=== PATIENT | female | born 1950 | race Caucasian/White ===

== ENCOUNTER 2019-10-19 15:04 | Emergency (ER) | payer MEDICARE, BC, SELFPAY ==
[2019-10-19 15:25] VITALS: BP 160/100; PULSE 102; RESP 20; TEMP 36.9; O2SAT 99
--- NOTE | 2019-10-19 15:41 | ED.FEMALEGU ---
HPI - Female Genitourinary General Chief complaint: Urogenital-Female Stated complaint: pos uti Time Seen by Provider: 10/19/19 15:24 Source: patient and RN notes reviewed Mode of arrival: ambulatory Limitations: no limitations History of Present Illness HPI Narrative: Patient presents today complaining of a 3-hour of gross hematuria, frequency, urgency, and lower abdominal pressure. Denies fever, chills or sweats, back pain, dysuria. Patient currently takes Xarelto for A. fib. History of a full hysterectomy many years ago related to uterine cancer. MD elicited complaint: other (Hematuria) Related Data Home Medications Medication Instructions Recorded Confirmed furosemide 40 mg DAILY 10/19/19 10/19/19 losartan-hydrochlorothiazide 1 tablet DAILY 10/19/19 10/19/19 metoprolol tartrate 100 mg BID 10/19/19 10/19/19 potassium chloride [Klor-Con M20] 20 meq PO DAILY 10/19/19 10/19/19 rivaroxaban [Xarelto] 20 mg DAILY 10/19/19 10/19/19 simvastatin 40 mg DAILY 10/19/19 10/19/19 Allergies Allergy/AdvReac Type Severity Reaction Status Date / Time AILYN Inhibitors Allergy Unknown COUGH Verified 08/16/18 14:43 Review of Systems Review of Systems: Narrative: CONSTITUTIONAL: Denies body aches, fever, chills, or sweats. EYES: Denies visual changes, redness, or discharge. ENT: Denies rhinorrhea, congestion, sore throat, or otalgia. CARDIOVASCULAR: Denies chest pain, palpitations, or edema. RESPIRATORY: Denies cough or dyspnea. GASTROINTESTINAL: Denies abdominal pain, nausea, vomiting, or diarrhea. GENITOURINARY: Denies dysuria. + Hematuria, urgency, frequency, lower abdominal pressure SKIN: Denies rash, itching, or wounds. MUSCULOSKELETAL: Denies back pain, joint pain, or myalgia. NEUROLOGIC: Denies headache, numbness, tingling, or weakness. PSYCH: Denies depression or anxiety. [facility] Past Medical History Medical History (Updated 10/19/19 @ 15:52 by Loan Srinivasan, DENI, BC) A-fib History of uterine cancer Hyperlipidemia Hypertension Surgical History Surgical History (Updated 10/19/19 @ 15:52 by Loan Srinivasan, GARAGE DOOR INSTALLER, BC) H/O: hysterectomy Social History Social History Gender identity (if verbalized by the patient): Female Comments At time of signature, I have reviewed and agree with nursing past medical, surgical, social and family history unless otherwise noted. Please see nursing chart for further information. There is no relevant family history pertinent to the presenting complaint Exam Narrative: Exam Narrative: GENERAL: Well-appearing, well-nourished, and in no acute distress. HEAD: Normocephalic, atraumatic. EYES: EOMI. No redness or drainage. Conjunctivae normal. ENT: Mucous membranes pink and moist. NECK: Normal AROM. CHEST: No respiratory distress. Clear to auscultation. HEART: Regular rate and rhythm. No murmur appreciated. Normal peripheral pulses. ABDOMEN: Soft, nontender, nondistended, normal active bowel sounds. -CVAT. Urine sample is dark red in color. MUSCULOSKELETAL: No bony tenderness. EXTREMITIES: Normal range of motion. No edema. SKIN: Warm, dry, no rash. Capillary refill normal. Normal skin turgor. NEURO: No focal deficits. Alert and oriented x3. Gait steady. PSYCH: Normal affect. No signs of depression or anxiety. Course Vital Signs Vital signs: Vital Signs Temperature 98.4 F 10/19/19 15:25 Pulse Rate 102 H 10/19/19 15:25 Respiratory Rate 10/19/19 15:25 Blood Pressure 160/100 H 10/19/19 15:25 Pulse Oximetry 99 10/19/19 15:25 Temperature 98.4 F 10/19/19 15:25 Pulse Rate 102 H 10/19/19 15:25 Respiratory Rate 10/19/19 15:25 Blood Pressure 160/100 H 10/19/19 15:25 Pulse Oximetry 99 10/19/19 15:25 Reviewed. Pt has been instructed to follow up with her PCP regarding her elevated blood pressure today. MDM - Female Genitourinary Differential Diagnosis Differential diagnosis: Likely urinary tract infection, vaginitis and cystitis L
== END 2019-10-19 15:47 | disposition home or self-care (01) ==
PROVIDERS: Emergency Provider Nurse Practitioner; PCP Family Medicine
DX: N30.01 Acute cystitis with hematuria (principal); I48.91 Unspecified atrial fibrillation; Z79.01 Long term (current) use of anticoagulants; E78.5 Hyperlipidemia, unspecified; I10 Essential (primary) hypertension; Z85.42 Personal history of malignant neoplasm of other parts of uterus
CPT/HCPCS: 81003; 87077; 87086; 87088; 87186; 99213; G0463

== ENCOUNTER 2019-12-01 11:33 | Emergency (ER) | payer MEDICARE, BC, SELFPAY ==
[2019-12-01 11:47] VITALS: BP 185/115; PULSE 108; RESP 16; TEMP 37.1; O2SAT 98
--- NOTE | 2019-12-01 12:15 | ED.GENADULT ---
HPI - General Adult General Chief complaint: Upper Respiratory Infection Stated complaint: possible sinus infection Time Seen by Provider: 12/01/19 12:15 Source: patient and RN notes reviewed Mode of arrival: ambulatory Limitations: no limitations History of Present Illness HPI narrative: 68-year-old female presents with complaints of upper respiratory infection, facial congestion, facial pain, cough, and intermittent sore throat and headaches (not the worst of her life) for the past 14 days. Symptoms has increased over the past 72 hours with productive cough and yellow rhinorrhea. Vickis nasal spray without relief. No facial swelling. Dry cough/intermittent productive cough (clear phlegm). Nasal congestion and rhinorrhea. No chest pain or shortness of breath. No exacerbating factors. Sore throat is bilateral without voice change. Denies fever or chills. Denies nausea, vomiting, and abdominal pain. Tolerating po intake well. Remains active. The patient reports she have not been diagnosed with COVID-19. The patient reports she is not waiting for the results of a COVID-19 lab test. The patient reports she do not have fever, chills, weakness, or fatigue. The patient reports she does have a worsening cough. The patient reports she do not have any loss of taste or diarrhea. Denies recent traveling. Denies concerns for COVID-19 or exposures been home with limited outdoor exposure except for essential household needs and return home. At this time, patient is not suspected of having COVID-19. Some parts of this dictation were generated by voice recognition software and may contain typographical and/or grammatical inaccuracies. Related Data Home Medications Medication Instructions Recorded Confirmed coenzyme Q10 [Co Q-10] 10 mg PO DAILY 12/01/19 12/01/19 cranberry 400 mg PO DAILY 12/01/19 12/01/19 losartan-hydrochlorothiazide 1 tablet PO DAILY 12/01/19 12/01/19 metformin [Glucophage XR] 500 mg PO BID 12/01/19 12/01/19 metoprolol tartrate [Lopressor] 50 mg PO BID 12/01/19 12/01/19 niacin 50 mg PO DAILY 12/01/19 12/01/19 omega-3 fatty acids [Fish Oil] 1,000 mg PO DAILY 12/01/19 12/01/19 rivaroxaban [Xarelto] 20 mg PO DAILY 12/01/19 12/01/19 simvastatin [Zocor] 40 mg PO HS 12/01/19 12/01/19 Allergies Allergy/AdvReac Type Severity Reaction Status Date / Time AILYN Inhibitors Allergy Unknown COUGH Verified 12/01/19 12:04 Review of Systems Review of Systems: Narrative: CONSTITUTIONAL: Denies fever, chills, sweats. EYES: Denies visual changes, redness, discharge. ENT: Complains of rhinorrhea, congestion, sore throat. Denies otalgia. CARDIOVASCULAR: Denies chest pain, palpitations, edema. RESPIRATORY: Denies dyspnea, wheezing. Complains of dry cough/intermittent productive. GASTROINTESTINAL: Denies abdominal pain, nausea, vomiting, diarrhea. GENITOURINARY: Denies dysuria, hematuria, abnormal discharge. SKIN: Denies rash or itching. MUSCULOSKELETAL: Denies acute back pain, joint pain, or myalgia. NEUROLOGIC: Denies numbness or focal weakness. Complains of intermittent ZHAO. PSYCHIATRIC: Denies anxiety or depression. All systems reviewed & are unremarkable except as noted in HPI and below. [facility] Past Medical History Medical History (Updated 12/01/19 @ 12:46 by DENI Duron) A-fib Anxiety Diabetes History of uterine cancer Hyperlipidemia Hypertension Surgical History Surgical History (Updated 12/01/19 @ 12:46 by DENI Duron) H/O: hysterectomy History of cardiac catheterization History of coronary artery stent placement History of eye surgery Family History Family History (Updated 12/01/19 @ 12:44 by DENI Duron) Father , At age 71 circulation problems Peripheral vascular disease Mother , At age 67 of [place] Acute myocardial infarction Social History Social History (Updated 12/01/19 @ 12:43 by DENI Duron) Smoking status: Never smoker Tob
[2019-12-01 12:30] VITALS: BP 168/92
--- NOTE | 2019-12-01 12:31 | PC.NURSE ---
1230- Pt told other RN (Alfredo Cody) she had not taken her blood pressure medications yet today.
== END 2019-12-01 12:27 | disposition home or self-care (01) ==
PROVIDERS: Emergency Provider Nurse Practitioner Family; PCP Family Medicine
DX: J01.00 Acute maxillary sinusitis, unspecified (principal); Z95.5 Presence of coronary angioplasty implant and graft; I48.91 Unspecified atrial fibrillation; E11.9 Type 2 diabetes mellitus without complications; E78.5 Hyperlipidemia, unspecified; I10 Essential (primary) hypertension; Z85.42 Personal history of malignant neoplasm of other parts of uterus; Z79.01 Long term (current) use of anticoagulants
CPT/HCPCS: 87081; 87804; 87880; 99213; G0463

== ENCOUNTER 2020-08-09 19:52 | Emergency (ER) | payer MEDICARE, BC, SELFPAY ==
[2020-08-09 20:04] VITALS: BP 138/74; PULSE 90; RESP 16; TEMP 36.9; O2SAT 99
--- NOTE | 2020-08-09 20:14 | ED.FEMALEGU ---
HPI - Female Genitourinary General Chief complaint: Urogenital-Female Stated complaint: uti Time Seen by Provider: 08/09/20 20:10 Source: patient and RN notes reviewed Mode of arrival: ambulatory Limitations: no limitations History of Present Illness HPI Narrative: Patient presents today complaining of hematuria, frequency, urgency, dysuria that started today. The hematuria started more this evening. History of UTI that she was seen at [facility] in October 2019 and treated with Keflex. Culture results showed E. coli and she had no resistance to antibiotics. States the Keflex did help her. MD elicited complaint: dysuria and UTI Related Data Home Medications Medication Instructions Recorded Confirmed Adults Multivitamin 08/09/20 ascorbate calcium (vitamin C) 08/09/20 co [id number] oil-omega 3-E 08/09/20 losartan-hydrochlorothiazide tablet 08/09/20 metformin mg PO 08/09/20 metoprolol tartrate 08/09/20 potassium chloride [Klor-Con M20] meq PO 08/09/20 rivaroxaban [Xarelto] mg 08/09/20 simvastatin mg 08/09/20 Allergies Allergy/AdvReac Type Severity Reaction Status Date / Time No Known Allergies Allergy Verified 08/09/20 19:56 Review of Systems Review of Systems: Narrative: CONSTITUTIONAL: Denies body aches, fever, chills, or sweats. EYES: Denies visual changes, redness, or discharge. ENT: Denies rhinorrhea, congestion, sore throat, or otalgia. CARDIOVASCULAR: Denies chest pain, palpitations, or edema. RESPIRATORY: Denies cough or dyspnea. GASTROINTESTINAL: Denies abdominal pain, nausea, vomiting, or diarrhea. GENITOURINARY: + Dysuria, hematuria, frequency, urgency SKIN: Denies rash, itching, or wounds. MUSCULOSKELETAL: Denies back pain, joint pain, or myalgia. NEUROLOGIC: Denies headache, numbness, tingling, or weakness. PSYCH: Denies depression or anxiety. [facility] Past Medical History Medical History (Updated 08/09/20 @ 20:18 by Loan Srinivasan, OPHTHALMIC LENS INSPECTOR, ) A-fib Diabetes Hypertension Comments At time of signature, I have reviewed and agree with nursing past medical, surgical, social and family history unless otherwise noted. Please see nursing chart for further information. There is no relevant family history pertinent to the presenting complaint Exam Narrative: Exam Narrative: GENERAL: Well-appearing, well-nourished, and in no acute distress. HEAD: Normocephalic, atraumatic. EYES: EOMI. No redness or drainage. Conjunctivae normal. ENT: Mucous membranes pink and moist. NECK: Normal AROM. CHEST: No respiratory distress. Clear to auscultation. HEART: Regular rate and rhythm. No murmur appreciated. Normal peripheral pulses. ABDOMEN: Soft, nontender, nondistended, normal active bowel sounds.-CVAT MUSCULOSKELETAL: No bony tenderness. EXTREMITIES: Normal range of motion. No edema. SKIN: Warm, dry, no rash. Capillary refill normal. Normal skin turgor. NEURO: No focal deficits. Alert and oriented x3. Gait steady. PSYCH: Normal affect. No signs of depression or anxiety. Course Vital Signs Vital signs: Vital Signs Temperature 98.4 F 08/09/20 20:04 Pulse Rate 90 08/09/20 20:04 Respiratory Rate 16 08/09/20 20:04 Blood Pressure 138/74 08/09/20 20:04 Pulse Oximetry 99 08/09/20 20:04 Temperature 98.4 F 08/09/20 20:04 Pulse Rate 90 08/09/20 20:04 Respiratory Rate 16 08/09/20 20:04 Blood Pressure 138/74 08/09/20 20:04 Pulse Oximetry 99 08/09/20 20:04 Reviewed. Pt has been instructed to follow up with her PCP regarding her elevated blood pressure today. MDM - Female Genitourinary Differential Diagnosis Differential diagnosis: Likely urinary tract infection and other (Pyelonephritis, interstitial cystitis, vulvovaginitis) Medical Records Attestation: I reviewed the patient's medical records. Lab Data Attestation: I reviewed the patient's lab results. Labs: Urine Glucose Trace Re
== END 2020-08-09 20:18 | disposition home or self-care (01) ==
PROVIDERS: Emergency Provider Nurse Practitioner; PCP Family Medicine
DX: N39.0 Urinary tract infection, site not specified (principal); I48.91 Unspecified atrial fibrillation; E11.9 Type 2 diabetes mellitus without complications; I10 Essential (primary) hypertension
CPT/HCPCS: 81003; 87077; 87086; 87186; 99213; G0463

== ENCOUNTER 2022-02-22 10:45 | Emergency (ER) | payer MEDICARE, BC, SELFPAY ==
[2022-02-22 11:01] VITALS: BP 170/103; PULSE 87; RESP 18; TEMP 36.8; O2SAT 98
[2022-02-22 11:05] VITALS: BP 170/103; PULSE 87; RESP 18; TEMP 36.8; O2SAT 98
--- NOTE | 2022-02-22 11:14 | ED.GENADULT ---
HPI - General Adult General Chief complaint: Upper Respiratory Infection Stated complaint: Weakness/Bodyaching/Fatique Time Seen by Provider: 02/22/22 11:14 Source: patient, RN notes reviewed and old records reviewed Mode of arrival: ambulatory Limitations: no limitations History of Present Illness HPI narrative: 71-year-old female presents to the [facility] with generalized weakness, body aches, fatigue since Saturday, 4 days Patient states she has a history of high blood pressure, heart failure, irregular heart rate and rhythm. Was supposed to have a tooth removed yesterday would stop taking her blood thinner 3-4 days ago. States that she was not feeling well so she did not go have her tooth removed, started her blood thinner back up today. Patient complaints of generalized weakness, and just foggy. Onset (ago): day(s) (4) Treatments prior to arrival: none Related Data Home Medications Medication Instructions Recorded Confirmed coenzyme Q10 10 mg capsule (Co 10 mg PO DAILY 12/01/19 12/01/19 Q-10) cranberry 400 mg capsule 400 mg PO DAILY 12/01/19 12/01/19 losartan 100 1 tablet PO DAILY 12/01/19 12/01/19 mg-hydrochlorothiazide 12.5 mg tablet metoprolol tartrate 50 mg tablet 50 mg PO BID 12/01/19 12/01/19 (Lopressor) niacin 50 mg tablet 50 mg PO DAILY 12/01/19 12/01/19 rivaroxaban 20 mg tablet (Xarelto) 20 mg PO DAILY 12/01/19 12/01/19 simvastatin 40 mg tablet (Zocor) 40 mg PO HS 12/01/19 12/01/19 Adults Multivitamin 08/09/20 co O01-qnfr oil-omega 3-E 08/09/20 metformin 500 mg tablet,extended mg PO 08/09/20 release 24 hr potassium chloride 20 mEq meq PO 08/09/20 tablet,extended release(part/cryst) (Klor-Con M) furosemide 40 mg tablet mg 02/22/22 02/22/22 Allergies Allergy/AdvReac Type Severity Reaction Status Date / Time AILYN Inhibitors Allergy Unknown COUGH Verified 02/22/22 11:01 Review of Systems Review of Systems: All systems reviewed & are unremarkable except as noted in HPI and below Constitutional: Constitutional: Reports as per HPI, Reports fatigue and Reports weakness Eyes: Eyes: Reports no additional eye complaints ENT: Reports system reviewed and no additional complaints, except as documented Cardiovascular: Cardiovascular: Reports as per HPI, Denies chest pain and Denies dyspnea Respiratory: Respiratory: Reports no additional respiratory complaints, Denies chest congestion, Denies cough and Denies dyspnea Gastrointestinal: Gastrointestinal: Reports no additional gastrointestinal complaints, Denies abdominal pain, Denies nausea and Denies vomiting Musculoskeletal: Musculoskeletal: Reports no additional musculoskeletal complaints Integumentary/Breasts: Skin/Breast: Reports system reviewed and no additional complaints, except as docu Neurologic: Reports system reviewed and no additional complaints, except as documented Psychiatric: Psychiatric: Reports no additional psychiatric complaints Allergic/Immunologic: Allergic/Immunologic: Reports no additional allergic/immunologic complaints [facility] Past Medical History Medical History A-fib A-fib Anxiety Diabetes Diabetes History of uterine cancer Hyperlipidemia Hypertension Hypertension Surgical History Surgical History H/O: hysterectomy History of cardiac catheterization History of coronary artery stent placement History of eye surgery Family History Family History Father , At age 71 circulation problems Peripheral vascular disease Mother , At age 67 of [place] Acute myocardial infarction Social History Social History Smoking status: Never smoker Tobacco type: cigarettes Second hand tobacco smoke exposure: No Alcohol intake: former Substance use: never Additional occupa
--- NOTE | 2022-02-22 11:26 | ECG_ITS ---
Measurements Intervals [place] Rate: 82 P: PA: 0 QRS: -16 QRSD: 101 T: -30 QT: 390 QTc: 458 Interpretive Statements ATRIAL FIBRILLATION INCOMPLETE RIGHT BUNDLE BRANCH BLOCK NONSPECIFIC T-WAVE ABNORMALITY- INF/LAT LEADS ABNORMAL ECG NO PREVIOUS ECG AVAILABLE FOR COMPARISON Electronically Signed On 02-23-2022 8:30:43 [employer]INT FA[employer]ORY WORK[employer] by Otto Piña D.O.
== END 2022-02-22 11:45 | disposition left against medical advice (07) ==
PROVIDERS: Emergency Provider Nurse Practitioner; PCP Family Medicine
DX: I48.91 Unspecified atrial fibrillation (principal); I10 Essential (primary) hypertension; E11.9 Type 2 diabetes mellitus without complications; E78.5 Hyperlipidemia, unspecified
CPT/HCPCS: 87804; 93005; 99213; G0463

== ENCOUNTER 2023-05-21 11:08 | Emergency (ER) | payer MEDICARE, SELFPAY ==
--- NOTE | 2023-05-21 11:19 | ED.URI ---
HPI - URI/Sore Throat General Chief Complaint: Upper Respiratory Infection Stated Complaint: Sinus Time Seen by Provider: 05/21/23 11:30 Source: patient Mode of arrival: ambulatory Limitations: no limitations History of Present Illness HPI Narrative: Edna is a 72-year-old female patient presenting to the clinic today with complaints of nasal congestion, eyes matted shut this morning, body aches, and overall not feeling well x1 day. Denies any known fever. MD elicited complaint: nasal congestion Related Data Home Medications Medication Instructions Recorded Confirmed coenzyme Q10 10 mg capsule (Co 10 mg PO DAILY 12/01/19 05/21/23 Q-10) cranberry 400 mg capsule 400 mg PO DAILY 12/01/19 05/21/23 losartan 100 1 tablet PO DAILY 12/01/19 05/21/23 mg-hydrochlorothiazide 12.5 mg tablet metoprolol tartrate 50 mg tablet 50 mg PO BID 12/01/19 05/21/23 (Lopressor) niacin 50 mg tablet 50 mg PO DAILY 12/01/19 05/21/23 rivaroxaban 20 mg tablet (Xarelto) 20 mg PO DAILY 12/01/19 05/21/23 simvastatin 40 mg tablet (Zocor) 40 mg PO HS 12/01/19 05/21/23 Adults Multivitamin 1 tab-cap PO DAILY 08/09/20 05/21/23 co [id number]-qcek oil-omega 3-E 1 tab-cap PO DAILY 08/09/20 05/21/23 metformin 500 mg tablet,extended 500 mg PO BID 08/09/20 05/21/23 release 24 hr potassium chloride 20 mEq 20 meq PO DAILY 08/09/20 05/21/23 tablet,extended release(part/cryst) (Klor-Con M) furosemide 40 mg tablet 40 mg PO DAILY 02/22/22 05/21/23 Allergies Allergy/AdvReac Type Severity Reaction Status Date / Time AILYN Inhibitors Allergy Unknown COUGH Verified 05/21/23 11:24 Review of Systems Review of Systems: Pertinent positives per HPI. Patient denies any fever, chills, rash, headache, visual changes, dizziness, cough, shortness of breath, chest pain, palpitations, nausea, vomiting, diarrhea, constipation, abdominal pain, or any urinary issues. [facility] Past Medical History Medical History A-fib A-fib Anxiety Diabetes Diabetes History of uterine cancer Hyperlipidemia Hypertension Hypertension Surgical History Surgical History H/O: hysterectomy History of cardiac catheterization History of coronary artery stent placement History of eye surgery Family History Family History Father , At age 71 circulation problems Peripheral vascular disease Mother , At age 67 of [place] Acute myocardial infarction Social History Social History Smoking status: Never smoker Tobacco type: cigarettes Second hand tobacco smoke exposure: No Alcohol intake: former Substance use: never Living arrangements: with family Occupation/Education: other 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 There is no relevant family history pertinent to the patient complaint. Exam Narrative: General: Well-developed, well nourished, in no apparent distress Head: Normocephalic, atraumatic Eyes: Pupils equally round and reactive to light bilaterally, EOM intact, sclera and conjunctive clear, no discharge, lids normal Ears: TMs intact and congested, ear canals clear, no drainage, grossly hearing normal. Nose: Nares patent, clear nasal discharge, no inflammation, no sinus tenderness. Mouth: Oral pharynx without lesions or masses, good dentition, MMM. Neck: Supple, trachea midline, no enlargement of anterior or posterior cervical nodes, no thyroid masses or goiter palpable. Cardio: Regular rate and rhythm, s1 and s2 normal, no murmur emperatriz
[2023-05-21 11:21] VITALS: BP 180/95; PULSE 80; RESP 16; TEMP 37; O2SAT 98
== END 2023-05-21 12:05 | disposition home or self-care (01) ==
PROVIDERS: Emergency Provider Nurse Practitioner Family; PCP Family Medicine
DX: J06.9 Acute upper respiratory infection, unspecified (principal); Z20.822 Contact with and (suspected) exposure to COVID-19; I48.91 Unspecified atrial fibrillation; E11.9 Type 2 diabetes mellitus without complications; Z79.84 Long term (current) use of oral hypoglycemic drugs; E78.5 Hyperlipidemia, unspecified; I10 Essential (primary) hypertension; Z85.42 Personal history of malignant neoplasm of other parts of uterus; Z95.5 Presence of coronary angioplasty implant and graft
CPT/HCPCS: 87426; 87804; 99213; G0463

== ENCOUNTER 2023-10-04 18:14 | Emergency (ER) | payer MEDICARE, SELFPAY ==
[2023-10-04 18:29] VITALS: BP 158/71; PULSE 87; RESP 18; TEMP 36.4; O2SAT 98
--- NOTE | 2023-10-04 18:56 | ED.SKABFB ---
HPI - Skin/Abscess/Foreign Bdy General Chief complaint: Skin/Abscess/Foreign Body Stated complaint: swelling and redness on leg Source: patient Mode of arrival: ambulatory Limitations: no limitations History of Present Illness HPI narrative: 72-year-old female with history of diabetes, uterine cancer, and AFib on Xarelto presented for complaint of ?red spots? to the right lower extremity. First noticed 3 days ago, says they have darkened. Denies pain itching or drainage to the spots. Also reports redness to the lower leg and states the chronic swelling is slightly increased from baseline. Pt reports swelling to the RLE for years, and had negative venous doppler 2 weeks ago. Related Data Home Medications Medication Instructions Recorded Confirmed coenzyme Q10 10 mg capsule (Co 10 mg PO DAILY 12/01/19 10/04/23 Q-10) cranberry 400 mg capsule 400 mg PO DAILY 12/01/19 10/04/23 losartan 100 1 tablet PO DAILY 12/01/19 10/04/23 mg-hydrochlorothiazide 12.5 mg tablet niacin 50 mg tablet 50 mg PO DAILY 12/01/19 10/04/23 rivaroxaban 20 mg tablet (Xarelto) 20 mg PO DAILY 12/01/19 10/04/23 Adults Multivitamin 1 tab-cap PO DAILY 08/09/20 10/04/23 co H17-fqig oil-omega 3-E 1 tab-cap PO DAILY 08/09/20 10/04/23 metformin 500 mg tablet,extended 1,000 mg PO BID 08/09/20 10/04/23 release 24 hr potassium chloride 20 mEq 20 meq PO DAILY 08/09/20 10/04/23 tablet,extended release(part/cryst) (Klor-Con M) furosemide 40 mg tablet 40 mg PO DAILY 02/22/22 10/04/23 metoprolol succinate 200 mg 200 mg PO DAILY 10/04/23 10/04/23 tablet,extended release 24 hr Allergies Allergy/AdvReac Type Severity Reaction Status Date / Time AILYN Inhibitors AdvReac Mild COUGH Verified 10/04/23 18:19 Review of Systems Review of Systems: CONSTITUTIONAL: Denies body aches, fever, chills CARDIOVASCULAR: Denies chest pain, palpitations, or edema. RESPIRATORY: Denies cough or dyspnea. GASTROINTESTINAL: Denies abdominal pain, nausea, vomiting, or diarrhea. SKIN: reports redness and red spots to RLE MUSCULOSKELETAL: Denies back pain, joint pain, or myalgia. NEUROLOGIC: Denies headache, numbness, tingling, or weakness. All systems reviewed & are unremarkable except as noted in HPI and below PMFSH Past Medical History Medical History A-fib A-fib Anxiety Diabetes Diabetes History of uterine cancer Hyperlipidemia Hypertension Hypertension Surgical History Surgical History H/O: hysterectomy History of cardiac catheterization History of coronary artery stent placement History of eye surgery Family History Family History Father , At age 71 circulation problems Peripheral vascular disease Mother , At age 67 of [place] Acute myocardial infarction Social History Social History Smoking status: Never smoker Tobacco type: cigarettes Second hand tobacco smoke exposure: No Alcohol intake: former Substance use: never Living arrangements: with family 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 Please see nursing chart for further information. There is no relevant family history pertinent to the presenting complaint Exam Narrative: GENERAL: Well-appearing CHEST: Speaks in full sentences. No respiratory distress. HEART: Regular rate and rhythm. Normal and equal peripheral pulses. EXTREMITIES: RLE with 4+ pitting edema, erythema extending from knee to ankle; multiple scattered fir
== END 2023-10-04 18:58 | disposition left against medical advice (07) ==
PROVIDERS: Emergency Provider Nurse Practitioner Family; PCP Family Medicine
DX: L03.115 Cellulitis of right lower limb (principal); I48.91 Unspecified atrial fibrillation; E11.9 Type 2 diabetes mellitus without complications; E78.5 Hyperlipidemia, unspecified; I10 Essential (primary) hypertension; Z85.42 Personal history of malignant neoplasm of other parts of uterus; Z95.5 Presence of coronary angioplasty implant and graft; Z79.01 Long term (current) use of anticoagulants
CPT/HCPCS: 99213; G0463

== ENCOUNTER 2024-04-11 11:27 | Emergency (ER) | payer MEDICARE, SELFPAY ==
--- NOTE | 2024-04-11 11:37 | ED.URI ---
HPI - URI/Sore Throat General Chief Complaint: Upper Respiratory Infection Stated Complaint: Sinus/Cough Time Seen by Provider: 04/11/24 11:50 Source: patient, RN notes reviewed and old records reviewed Mode of arrival: ambulatory Limitations: no limitations History of Present Illness HPI Narrative: Patient presents with complaints of coughing a couple of times this morning. She reports that she is concerned because her grandchildren live across the street from her and 1 of them has influenza and strep throat. Patient reports that she is very busy and does not have time to be sick, so would like to be tested for COVID, flu, strep Related Data Home Medications ?Medication ?Instructions ?Recorded ?Confirmed ?Last Taken ?Type coenzyme Q10 10 mg capsule (Co 10 mg PO DAILY 12/01/19 10/04/23 Unknown History Q-10) cranberry 400 mg capsule 400 mg PO DAILY 12/01/19 10/04/23 Unknown History losartan 100 1 tablet PO DAILY 12/01/19 10/04/23 Unknown History mg-hydrochlorothiazide 12.5 mg tablet niacin 50 mg tablet 50 mg PO DAILY 12/01/19 10/04/23 Unknown History rivaroxaban 20 mg tablet (Xarelto) 20 mg PO DAILY 12/01/19 10/04/23 Unknown History Adults Multivitamin 1 tab-cap PO DAILY 08/09/20 10/04/23 Unknown History metformin 500 mg tablet,extended 1,000 mg PO BID 08/09/20 10/04/23 Unknown History release 24 hr potassium chloride 20 mEq 20 meq PO DAILY 08/09/20 10/04/23 Unknown History tablet,extended release(part/cryst) (Klor-Con M) furosemide 40 mg tablet 40 mg PO DAILY 02/22/22 10/04/23 Unknown History metoprolol succinate 200 mg 200 mg PO DAILY 10/04/23 10/04/23 Unknown History tablet,extended release 24 hr simvastatin 40 mg tablet mg 04/11/24 Unknown History Allergies Allergy/AdvReac Type Severity Reaction Status Date / Time AILYN Inhibitors AdvReac Mild COUGH Verified 04/11/24 11:30 Review of Systems Review of Systems: All systems reviewed & are unremarkable except as noted in HPI and below Constitutional: Constitutional: Reports no additional constitutional complaints ENT: Reports system reviewed and no additional complaints, except as documented Cardiovascular: Cardiovascular: Reports no additional cardiovascular complaints Respiratory: Respiratory: Reports no additional respiratory complaints and Reports cough Gastrointestinal: Gastrointestinal: Reports no additional gastrointestinal complaints [facility] Past Medical History Medical History A-fib A-fib Anxiety Diabetes Diabetes History of uterine cancer Hyperlipidemia Hypertension Hypertension Surgical History Surgical History H/O: hysterectomy History of cardiac catheterization History of coronary artery stent placement History of eye surgery Family History Family History Father , At age 71 circulation problems Peripheral vascular disease Mother , At age 67 of [place] Acute myocardial infarction Social History Social History Smoking status: Never smoker Tobacco type: cigarettes Second hand tobacco smoke exposure: No Alcohol intake: former Substance use: never Living arrangements: with family Occupation/Education: other 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 There is no relevant family history pertinent to the patient complaint. Exam Const: General: cooperative, no acute distress, alert and awake Orientation/consciousness: oriented to person, oriented to place and oriented to time HENMT: Head: normal to inspection Resp: Effort & Inspection: normal respiratory effort and able to speak in complete sentences Auscultation: clear to auscultation bilaterally, no crackles, no rales, no rhonchi and no wheezes Cardio: Palpation: normal PMI Rate: regular rate Rhythm: regular rhythm Heart sounds: S1 normal heart sound present and S2 normal heart sound present Neuro: General: oriented to person, oriented to place and oriented to time Cranial nerves: Yes CN's II-XII intact bilaterally Psych: Appearance: grossly normal Thought process: Normal thought process present Insight: Good insight present (Psych) Judgement: Good judgement present (Psych) Course Course Level of Care: Express Care Visit Vital Signs Vital signs: Reviewed MDM - URI/Sore Throat MDM Narrative Medical decision making narrative: Negative COVID, negative flu, negative strep, culture pending. Reassuring physical exam. Patient advised that she does not appear ill and all tests are negative Discharge instructions reviewed with patient, as well as provided in writing per nursing staff. The instructions also include specific and strict return/GO TO THE ER as well as f/u information. All questions have been answered, and the patient deny any further questions with discharge and discharge plan. Some parts of this dictation were generated by voice recognition software and may contain typographical and/or grammatical inaccuracies. Differential Diagnosis Differential diagnosis: Likely upper respiratory infection, otitis media, sinusitis, viral infection, influenza and pharyngitis Medical Records Attestation: I reviewed the patient's medical records. Lab Data Attestation: I reviewed the patient's lab results. Discharge Plan Discharge Clinical Impression: Elevated blood pressure reading Cough Qualifiers: Cough type: acute Qualified Code(s): R05.1 - Acute cough Patient Disposition: Home, Self-Care Condition: Stable Instructions: Antibiotic Form, Acute Cough (ED) Additional Instructions: Follow-up with primary care provider. Emergency department for new or worsening symptoms Patient Language: Faroese Prescriptions: No Action metoprolol succinate 200 mg tablet extended release 24 hr 200 mg PO DAILY coenzyme Q10 [Co Q-10] 10 mg Capsule 10 mg PO DAILY niacin 50 mg Tablet 50 mg PO DAILY cranberry 400 mg Capsule 400 mg PO DAILY losartan-hydrochlorothiazide 100-12.5 mg Tablet 1 tablet PO DAILY Xarelto 20 mg Tablet 20 mg PO DAILY Adults Multivitamin 1 tab-cap PO DAILY potassium chloride [Klor-Con M20] 20 mEq tablet,ER particles/crystals 20 meq PO DAILY metformin 500 mg tablet extended release 24 hr 1,000 mg PO BID furosemide 40 mg tablet 40 mg PO DAILY simvastatin 40 mg tablet Follow-up/Referrals: John,Abhi Coelho MD [Primary Care Provider] - 1 Week Time of Disposition: 12:10
[2024-04-11 11:39] VITALS: BP 179/86; PULSE 73; RESP 14; TEMP 36.8; O2SAT 100
[2024-04-11 12:01] VITALS: PULSE 73; RESP 14; O2SAT 100
[2024-04-11 12:04] LABS: EDCOVIDSCREEN Negative (Negative); EDINFLUASCREEN Negative (Negative); EDINFLUBSCREEN Negative (Negative); EDSTREPNEGPOS1 Negative (Negative)
[2024-04-11 12:15] VITALS: BP 177/88; PULSE 100; RESP 20; O2SAT 72
== END 2024-04-11 12:15 | disposition home or self-care (01) ==
PROVIDERS: Emergency Provider Nurse Practitioner Family; PCP Family Medicine
DX: R05.1 Acute cough (principal); I10 Essential (primary) hypertension; Z20.822 Contact with and (suspected) exposure to COVID-19; I48.91 Unspecified atrial fibrillation; E11.9 Type 2 diabetes mellitus without complications; Z79.84 Long term (current) use of oral hypoglycemic drugs; E78.5 Hyperlipidemia, unspecified; Z85.42 Personal history of malignant neoplasm of other parts of uterus; Z95.5 Presence of coronary angioplasty implant and graft; Z79.01 Long term (current) use of anticoagulants
CPT/HCPCS: 87081; 87426; 87804; 87880; 99213; G0463

== ENCOUNTER 2024-05-05 20:41 | Emergency (ER) | payer MEDICARE, SELFPAY ==
--- NOTE | ~2024-05-05 | CT_ITS ---
EXAMINATION: CT brain wo con DATE: 05/06/2024 04:11 INDICATION: Head injury. TECHNIQUE: Computed tomography (CT) of the head was performed without intravenous contrast. The mA wa s adjusted according to patient size. Iterative reconstruction technique was employed. The dose-lengt h product was 756.67 mGy-cm. COMPARISON: Head CT 05/05/2024 FINDINGS: There is an old infarct in the right basal ganglia. There are scattered areas of low attenu ation in the cerebral white matter. There is no intracranial hemorrhage, acute infarction, or abnorma l intracranial mass lesion. The ventricles are normal in size. There are likely changes of ocular gavino s replacement surgeries. There is a right frontal scalp hematoma. The mastoid air cells are normal. IMPRESSION: 1. Old infarct in the right basal ganglia. 2. Moderate nonspecific cerebral white matter disease, which likely represents chronic small vessel i schemic disease. Reviewed, dictated and finalized at location A. IMPRESSION: 1. Old infarct in the right basal ganglia. 2. Moderate nonspecific cerebral white matter disease, which likely represents chronic small vessel ischemic disease.
--- NOTE | ~2024-05-05 | CT_ITS ---
EXAMINATION: CT brain wo con DATE: 05/05/2024 22:13 INDICATION: fall, on thinners . TECHNIQUE: Computed tomography (CT) of the head was performed without intravenous contrast. The mA wa s adjusted according to patient size. Iterative reconstruction technique was employed. The dose-lengt h product was 832.33 mGy-cm. COMPARISON: None. FINDINGS: Small extra-axial density along the right frontal lobe, associated with concavity in the inner table of the skull, measuring up to 3 mm thick. No acute intraparenchymal hemorrhage. No hydrocephalus, mass, or herniation. No acute ischemic infarct. Unremarkable dural venous sinus attenuation. No acute osseous abnormality. Large right frontal scalp hematoma. The aerated spaces are clear. Moderate atrophy and chronic white matter change. Atherosclerotic intracranial calcification. Bilater al lens replacements. Bilateral basal ganglia calcification and old lacunar infarcts. IMPRESSION: Small focus of right frontal extra-axial hemorrhage versus artifact from skull concavity. Consider sh ort-term follow-up noncontrast head CT to evaluate for persistence/change. Results reported telephonically to Dr. Serrano by Dr. Murphy at 10:50 PM on 05/05/2024. Reviewed, dictated and finalized at location K. IMPRESSION: Small focus of right frontal extra-axial hemorrhage versus artifact from skull concavity. Consider short-term follow-up noncontrast head CT to evaluate for pe rsistence/change. Results reported telephonically to Dr. Serrano by Dr. Murphy at 10:50 PM on 05/05.
--- NOTE | ~2024-05-05 | XR_ITS ---
EXAM: XR elbow RT 2V DATE: 05/05/2024 21:48 HISTORY: abrasion after fall . COMPARISON: None available. FINDINGS: Osteopenia. No fracture or dislocation. No lytic or blastic lesion. Moderate degenerative change at the elbow joint. Olecranon enthesopathy. No erosion or periosteal change. Soft tissues with in normal limits. IMPRESSION: No acute osseous finding in the right elbow. Reviewed, dictated and finalized at location K.
--- NOTE | ~2024-05-05 | CT_ITS ---
EXAMINATION: CT cervical spine wo con DATE: 05/05/2024 22:13 INDICATION: fall, on thinners TECHNIQUE: Computed tomography (CT) of the cervical spine was performed without intravenous contrast. Automated exposure control and iterative reconstruction technique were employed. The dose-length pro duct was 423.24 mGy-cm. COMPARISON: None. FINDINGS: Vertebral Body Alignment: Intact. Craniocervical and atlantoaxial alignment: Moderate degenerative change. Alignment intact. Osseous structures/fracture: No evidence of a lytic or blastic process in the visualized spine. No e vidence of acute fracture. Cervical soft tissues: The paraspinal soft tissues planes are maintained. Degenerative changes: Degenerative changes, without severe neural foraminal or central canal narrowin g. IMPRESSION: No acute fracture or traumatic malalignment in the cervical spine. Reviewed, dictated and finalized at location K.
--- NOTE | ~2024-05-05 | XR_ITS ---
EXAM: XR wrist LT 2V, XR wrist RT 2V DATE: 05/05/2024 21:48 HISTORY: pain after fall . COMPARISON: None available. FINDINGS: Osteopenia. No fracture or dislocation. No lytic or blastic lesion. Mild scattered arthrit ic changes, typical of osteoarthritis. No erosion or periosteal change. Soft tissues within normal li mits. IMPRESSION: No acute osseous finding in the left or right wrist. Reviewed, dictated and finalized at location K. IMPRESSION: No acute osseous finding in the left or right wrist.
--- OUTSIDE RECORDS SUMMARY | 2024-05-05 20:44 | XMS_ITS | Encounter Summary ---
Author Organization [facility] Facility Care Team Providers Care Precision Aircraft Structure Assembler Name Role Phone Abhi Lopez MD Primary Care Provider [phone] Collin Longo MD Unavailable [phone] Encounter Details Date Type Department Care Team (Latest Contact Info) Description 12/08/2010 Orders Only [facility] ProviderZahira MD [address] [place] [id number] Social History Tobacco Use Types Packs/Day Years Used Date Smoking Tobacco: Never Assessed Comments Unknown Sex and Gender Information Value Date Recorded Sex Assigned at Not on file Legal Sex Female 2:57 AM HEALTH ECONOMIST Gender Identity Not on file Sexual Orientation Straight 12/27/2019 12 :40 PM HEALTH ECONOMIST documented as of this encounter Plan of Treatment Not on file documented as of this encounter Procedures Procedure Name Priority Date/Time Associated Diagnosis Comments CARDIOLOGY REPORT 09/26/2015 12: 00 AM CDT documented in this encounter Results * CARDIOLOGY REPORT (09/26/2015 12:00 AM CDT) Anatomical Region Laterality Modality Other Narrative 09/26/2015 12:00 AM CDT Ordered by an unspecified provider. Historical Provider [facility] PETRA WALLACE Final Result documented in this encounter Visit Diagnoses Not on filedocumented in this encounter Care Teams Precision Aircraft Structure Assembler Relationship Specialty Start Date End Date Abhi Lopez MD PCP - General 02/10/17 Collin Longo MD Antique Furniture Repairer Cardiology 09/19/18 documented as of this encounter
--- OUTSIDE RECORDS SUMMARY | 2024-05-05 20:44 | XMS_ITS | Encounter Summary ---
Author Organization [facility] Facility Care Team Providers Care Cigar Machine Feeder Name Role Phone Abhi Lopez MD Primary Care Provider [phone] Collin Longo MD Unavailable [phone] Encounter Details Date Type Department Care Team (Latest Contact Info) Description 09/23/2017 Orders Only [facility]INCON[facility] ProviderZahira MD [address] [place] [id number] Social History Tobacco Use Types Packs/Day Years Used Date Smoking Tobacco: Never Assessed Comments Unknown Sex and Gender Information Value Date Recorded Sex Assigned at Not on file Legal Sex Female 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 Historical Provider Final Res ult documented in this encounter Visit Diagnoses Not on filedocumented in this encounter Care Teams Cigar Machine Feeder Relationship Specialty Start Date End Date Abhi Lopez MD PCP - General 02/10/17 Collin Longo MD Classroom Technology Technician Cardiology 09/19/18 documented as of this encounter
--- OUTSIDE RECORDS SUMMARY | 2024-05-05 20:44 | XMS_ITS | Encounter Summary ---
Author Organization [facility] Facility Care Team Providers Care Suspect Artist Supervisor Name Role Phone Abhi Lopez MD Primary Care Provider [phone] Collin Longo MD Unavailable [phone] Encounter Details Date Type Department Care Team (Latest Contact Info) Description 04/22/2015 Orders Only [facility]INCON[facility] ProviderZahira MD [address] [place] [id number] Social History Tobacco Use Types Packs/Day Years Used Date Smoking Tobacco: Never Assessed Comments Unknown Sex and Gender Information Value Date Recorded Sex Assigned at Not on file Legal Sex Female 2:57 AM DISTRIBUTION DESIGNER Gender Identity Not on file Sexual Orientation Straight 12/27/2019 12 :40 PM DISTRIBUTION DESIGNER documented as of this encounter Plan of Treatment Not on file documented as of this encounter Procedures Procedure Name Priority Date/Time Associated Diagnosis Comments SCAN - LABS 04/22/2015 12:00 AM DISTRIBUTION DESIGNER documented in this encounter Results * SCAN - LABS (04/22/2015 12:00 AM DISTRIBUTION DESIGNER) Narrative 04/22/2015 12:00 AM DISTRIBUTION DESIGNER Ordered by an unspecified provider. Historical Provider Final Res ult documented in this encounter Visit Diagnoses Not on filedocumented in this encounter Care Teams Suspect Artist Supervisor Relationship Specialty Start Date End Date Abhi Lopez MD PCP - General 02/10/17 Collin Longo MD Thermodynamic Physicist Cardiology 09/19/18 documented as of this encounter
--- OUTSIDE RECORDS SUMMARY | 2024-05-05 20:44 | XMS_ITS | Encounter Summary ---
Author Organization [facility] Facility Care Team Providers Care Parts Counter Specialist Name Role Phone Abhi Lopez MD Primary Care Provider [phone] Collin Longo MD Unavailable [phone] Encounter Details Date Type Department Care Team (Latest Contact Info) Description 12/23/2006 Orders Only [facility] CLINCONV ProviderZahira MD [address] [place] [id number] Social History Tobacco Use Types Packs/Day Years Used Date Smoking Tobacco: Never Assessed Comments Unknown Sex and Gender Information Value Date Recorded Sex Assigned at Not on file Legal Sex Female 2:57 AM PAINTING MANAGER Gender Identity Not on file Sexual Orientation Straight 12/27/2019 12 :40 PM PAINTING MANAGER documented as of this encounter Plan of [...] on filedocumented in this encounter Care Teams Parts Counter Specialist Relationship Specialty Start Date End Date Abhi Lopez MD PCP - General 02/10/17 Collin Longo MD Lining Stitcher Cardiology 09/19/18 documented as of this encounter
--- OUTSIDE RECORDS SUMMARY | 2024-05-05 20:44 | XMS_ITS | Referral Summary ---
Author Organization [facility] Address [address] [place] [address] Care Team Providers Care Configuration Analyst Name Role Phone Abhi Lopez MD Primary Care Provider [phone] Collin Longo MD Unavailable [phone] Encounters Date Type Department Care Team Description 03/19/2024 Documentation [facility] Family Medicine at [address] [place] [phone] Abhi Lopez MD Med Refill 03/19/2024 8:15 AM SENIOR CLIMATE ADVISOR Office Visit [facility] Family Medicine at [address] [place] [address] Abhi Lopez MD Type 2 diabetes mellitus without complication, without long-term current use of insulin (HCC) (Primary Dx); Coronary artery disease of [place] artery of [place] heart with stable angina pectoris; Primary hypertension; Mixed hyperlipidemia; Chronic right-sided low back pain with right-sided sciatica; Chronic systolic congestive heart failure (HCC) 03/04/2024 Telephone [facility] Family Medicine at [address] [place] [address] Abhi Lopez MD Med Refill 02/14/2024 Telephone [facility] Cardiology [address] [place] [address] [place] [phone] Earlene Chirinos MD Med Refill from Last 3 Months Allergies Active Allergy Reactions Criticality Noted Date Comments Elan Inhibitors Unknown 06/25/2018 Medications ubidecarenone (COENZYME Q10) 100 mg tablet Take by mouth Active omega 9-zxs-hei-fish oil 1,000 mg (120 mg-180 mg) capsule A ctive cranberry extract-vitamin C 250-60 mg capsule Take by mouth Active therapeutic multivitamin (THERA) tabletIndications: Vitamin Deficiency Prevention Take 1 tablet by mouth daily Active NIACIN ORALIndications:OT C Take by mouth Active cinnamon bark 500 mg capsule Take 1 capsule (500 mg total) by mouth daily Active colchicine (COLCRYS) 0.6 mg tablet One at onset may repeat in 2 hours 30 tablet 1 03/28/19 22 Active blood-glucose meter kit 1 kit daily 1 kit 09/22/19 22 Active blood glucose diagnostic (glucose blood) strip daily 100 each 11 09/22/19 22 Active fluticasone propionate (FLONASE) 50 mcg/actuation nasal spray Administer 1 spray into each nostril 2 (two) times a day 54.6 mL 1 04/06/19 23 Active triamcinolone (KENALOG) 0.1 % ointment Apply topically 2 (two) times a day as needed for irritation or rash 60 g 11/27/19 23 Active potassium chloride ER (Klor-Con M20) 20 mEq CR tabletIndications: Persistent atrial fibrillation (HCC),Acute on chronic combined systolic and diastolic congestive heart failure (HCC),Coronary artery disease of [place] artery of [place] heart with stable angina pectoris,Pulmonary hypertension (HCC),Ischemic cardiomyopathy Take 1 tablet (20 mEq total) by mouth 2 (two) times a day 180 tablet 1 11/27/19 23 Active furosemide (LASIX) 40 mg tabletIndications: Persistent atrial fibrillation (HCC),Acute on chronic combined systolic and diastolic congestive heart failure (HCC),Coronary artery disease of [place] artery of [place] heart with stable angina pectoris,Pulmonary hypertension (HCC) Take 1 tablet (40 mg total) by mouth 2 (two) times a day 180 tablet 1 11/27/19 23 Active Additional Information Patient taking differently:40 mg oralDaily, Reported on 03/19/2024 simvastatin (ZOCOR) 40 mg tabletIndications: Persistent atrial fibrillation (HCC),Acute on chronic combined systolic and diastolic congestive heart failure (HCC),Coronary artery disease of [place] artery of [place] heart with stable angina pectoris,Pulmonary hypertension (HCC) Take 1 tablet (40 mg total) by mouth nightly 90 tablet 3 02/22/19 24 Active losartan-hydroCHLO ROthiazide (HYZAAR) 100-12.5 mg per tabletIndications: Persistent atrial fibrillation (HCC),Acute on chronic combined systolic and diastolic congestive heart failure (HCC),Coronary artery disease of [place] artery of [place] heart with stable angina pectoris,Pulmonary hypertension (HCC) TAKE 1 TABLET DAILY 90 tablet 3 06/24/19 24 Active vit C,E-Hx-uzxab-lutei n-zeaxan 250-90-40-1 mg capsule Take by mouth 2 (two) times a day Active metFORMIN XR (GLUCOPHAGE XR) 500 mg 24 hr tablet TAKE 2 TABLETS TWICE A DAY 360 tablet 3 01/17/20 24 Active metoprolol XL (TOPROL-XL) 200 mg extended release tabletIndications: Persistent atrial fibrillation (HCC),Acute on chronic combined systolic and diastolic congestive heart failure (HCC),Coronary artery disease of [place] artery of [place] heart with stable angina pectoris,Pulmonary hypertension (HCC) Take 1 tablet (200 mg total) by mouth daily 90 tablet 3 01/27/20 24 Active rivaroxaban (XARELTO) 20 mg tablet Take 1 tablet (20 mg total) by mouth daily 90 tablet 1 03/05/19 25 Active dapagliflozin propanediol (FARXIGA) 10 mg tablet Take 1 tablet (10 mg total) by 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 Does not wish to be on CPAP. Will check follow-up echocardiogram and revisit the issue of sleep medicine evaluation if severe pulmonary hypertension persists. Cardiomyopathy 10/07/2020 Nonrheumatic tricuspid valve regurgitation 10/07 Chronic left-sided low back pain with sciatica 0 05/30/2020 Lymphedema of right lower extremity 07/08/2019 History of endometrial cancer 01/11/2019 Persistent atrial fibrillation 07/30/2018 Assessment & Plan (03/06/2022 11:19 AM SENIOR CLIMATE ADVISOR): Persistent, rate controlled. Continue metoprolol succinate for rate control and rivaroxaban for thromboembolic risk reduction. Chads Vasc score elevated at 5 (age, gender, hypertension, Coronary Artery Disease, cardiomyopathy). Reviewed options of continued anticoagulation and will continue after shared decision-making with rivaroxaban 20 mg daily. Assessment & Plan (07/13/2020 8:45 AM CDT): Permanent. Rate controlled. Continue metoprolol continue anticoagulation Assessment & Plan (12/28/2019 8:06 AM SENIOR CLIMATE ADVISOR): Rate controlled. Continue Toprol and anticoagulation Assessment & Plan (03/03/2019 3:02 PM SENIOR CLIMATE ADVISOR): Rates controlled. Continue Toprol 100. Assessment & Plan (10/02/2018 4:18 PM CDT): Rate controlled. Continue metoprolol anticoagulation. Assessment & Plan (07/30/2018 11:57 AM CDT): Newly diagnosed. Appears asymptomatic. Rates a little higher than ideal will increase metoprolol to 100 mg twice daily. Begin Eliquis 5 mg twice daily check echocardiogram. Discussed in detail with her. Due to lack of symptoms would not try rhythm control. Labs from March were okay. Will repeat CMP and thyroid panel Coronary artery disease of n ative artery of [place] heart with stable angina pectoris 07/30/2018 Assessment & Plan (03/06/2022 11:18 AM SENIOR CLIMATE ADVISOR): Recent stress test with low risk findings. Previous history of PCI. Continue medical management after shared decision-making. Lipid profile with LDL at goal. Continue current dose of simvastatin. Not on aspirin due to concomitant use of rivaroxaban. Assessment & Plan (07/13/2020 8:45 AM CDT): Remote angioplasty and stent continue aspirin Xarelto simvastatin. And metoprolol. No signs of new ischemia Assessment & Plan (07/30/2018 11:59 AM CDT): No signs of ischemia. Continue metoprolol and statin and aspirin Medicare annual wellness visit, subsequent 07/30 Assessment & Plan (07/13/2020 8:45 AM CDT): GFR greater than 50. Continue Xarelto 20 Assessment & Plan (12/28/2019 8:05 AM SENIOR CLIMATE ADVISOR): Recent GFR greater than 50. Continue Xarelto 20 mg daily Assessment & Plan (03/03/2019 3:02 PM SENIOR CLIMATE ADVISOR): Recent GFR greater than 50. Continue Xarelto 20 daily Assessment & Plan (10/02/2018 4:29 PM CDT): . Continue to hold Xarelto at discretion of plastic surgeon. Likely resume a couple weeks Assessment & Plan (07/30/2018 11:59 AM CDT): Begin Xarelto 20 mg q.h.s.. Noted to 5 to stop if any signs of bleeding. Last GFR greater than 50 20 mg q.h.s. HTN (hypertension) 12/07/2016 Assessment & Plan (07/13/2020 8:46 AM CDT): Repeat blood pressure was 145/92. Patient states was just at Dr. Roldan office for was fine. Has not taken metoprolol yet today. Told to follow blood pressures and notify us if diastolics were systolics remain high. She will stop NSAIDs replaced with Tylenol. Assessment & Plan (12/28/2019 8:12 AM SENIOR CLIMATE ADVISOR): Controlled. With repeat repeat blood pressure 135/84 Assessment & Plan (03/03/2019 3:02 PM SENIOR CLIMATE ADVISOR): Repeat blood pressure 115/75. Continue current medications Assessment & Plan (10/02/2018 4:19 PM CDT): Continue losartan DM2 (diabetes mellitus, type 2) 12/07/2016 Hyperlipidemia 12/07/2016 Assessment & Plan (12/28/2019 8:12 AM SENIOR CLIMATE ADVISOR): Continue simvastatin Resolved Problems Problem Noted Date Diagnosed Date Resolved Date Syncope and collapse 05/24/2022 025 Morbid (severe) obesity due to excess calories 03/28/2022 03/19/2024 Type 2 diabetes mellitus with hyperglycemia 09/21/2021 03/19/2024 Acute on chronic combined sy stolic and diastolic congestive heart failure 03/28/202103/19 Assessment & Plan (03/06/2022 11:18 AM SENIOR CLIMATE ADVISOR): Clinically euvolemic. Continue furosemide 40 mg b.i.d.. Continue current dose of metoprolol succinate and losartan-HCTZ for medical therapy of mixed cardiomyopathy. Type II or unspecified type diabetes mellitus with renal manifestations, uncontrolled(250.42) 03/22/2021 09/21/2021 Stable angina 01/19/2021 06/09/2021 Groin pain, right 08/22/2018 09/24/2018 Hematuria 08/22/2018 09/24/2018 Localized edema 08/22/2018 07/08/2019 Hypertension 07/30/2018 09/24/2018 Assessment & Plan (07/30/2018 11:59 AM CDT): Increasing metoprolol Morbid obesity 07/30/2018 03/19/2024 Assessment & Plan (07/13/2020 8:46 AM CDT): Encouraged dieting weight loss Assessment & Plan (12/28/2019 8:05 AM SENIOR CLIMATE ADVISOR): Encouraged dieting and weight loss Assessment & Plan (03/03/2019 3:02 PM SENIOR CLIMATE ADVISOR): Encouraged dieting and weight loss Assessment & Plan (10/02/2018 4:28 PM CDT): Encouraged dieting Assessment & Plan (07/30/2018 12:00 PM CDT): Encouraged dieting and weight loss Other specified anxiety disorders 03/27/2018 03/19/2024 Immunizations Immunization Administration Dates Next Due COVID-19 mRNA (E-Generator) 0.3 m L (30 mcg) vaccine (12 years and up) 10/24/2023 Influenza, Quad, Adjuvantate d, Intramuscular 01/11/2023,11/13/2021,11/22/2020,10/20 Influenza, Quadrivalent, Hig h Dose, Preservative Free, Intrr 01/11/2023,11/13/2021,11/22/2020 Influenza, Trivalent, High D ose, Split, Preservative Free, Intramuscular 10/24/2023,12/09/2018,11/03/2017 Influenza, Trivalent, IM (MDV) 12/07/2016,2014,11/02/2013 Influenza, Trivalent, Preser vative Free, Intramuscular 12/19/2015 Influenza, Unspecified 11/11/2021 Moderna Sars-cov-2 Bivalent Vaccine 50 Mcg/0.5 mL (12+ YRS)-Blue/House 11/13/2021 Pfizer SARS-CoV-2 Monovalent Vaccination (12+ Yrs) PURPLE 11/23/2020,04/26/2020,04/08/2020 Pneumococcal Conjugate PCV 13 12/09/2018 Pneumococcal Conjugate Pcv20 10/24/2023 Pneumococcal Polysaccharide PPV23 03/22/2021 RSV Vaccine, Pref, Recombina nt, Subunit, Adjuvanted, PF, IM (Arexvy) 01/22/2023 Sars-cov-2 Covid-19 Mrna, Bi valent, Original/omicron Ba.1 01/11/2023 Tdap 11/23/2014 ZOSTER LIVE 11/02/2013 ZOSTER Recombinant 05/23/2021,04/03/2021 Social History Tobacco Use Types Packs/Day Years Used Date Smoking Tobacco: Never Smokeless Tobacco: Never Tobacco Cessation:Counseling Given: Not Answered Alcohol Use Standard Drinks/Week Comments Never 0 (1 standard drink = 0.6 oz pur e alcohol) AUDIT-C Answer Date Recorded Frequency of Alcohol Consumption Not on file 11/26/2022 Q2: How many drinks containi ng alcohol do you have on a typical day when you are drinking? Patient does not drink Frequency of Binge Drinking Not on file 11/11 PHQ-2 Answer Date Recorded PHQ-2 Total Score (If total score is 3 or more points, staff should administer the PHQ-9) 0 09/11/2023 Comments No Sex and Gender Information Value Date Recorded Sex Assigned at Not on file Legal Sex Female 2:57 AM SENIOR CLIMATE ADVISOR Gender Identity Not on file Sexual Orientation Straight 12/27/2019 12 :40 PM SENIOR CLIMATE ADVISOR Last Filed Vital Signs Vital Sign Reading Time Taken Comments Blood Pressure 148/88 03/19/2024 9:09 AM SENIOR CLIMATE ADVISOR Pulse 86 03/19/2024 8:12 AM SENIOR CLIMATE ADVISOR Temperature 36.6 C (97.8 F) 03/19/2024 8:12 AM SENIOR CLIMATE ADVISOR Respiratory Rate 18 10/11/2023 11:20 AM CDT Oxygen Saturation 95% 03/19/2024 8:12 AM SENIOR CLIMATE ADVISOR Inhaled Oxygen Concentration - - Weight 91.7 kg (202 lb 1.6 oz) 03/19/2024 8:12 A M SENIOR CLIMATE ADVISOR Height 157.5 cm (5' 2 ) 03/19/2024 8:12 AM SENIOR CLIMATE ADVISOR Body Mass Index 36.96 03/19/2024 8:12 AM SENIOR CLIMATE ADVISOR Plan of Treatment Not on file Procedures Procedure Name Priority Date/Time Associated Diagnosis Comments SCREENING MAMMOGRAM BILATERAL W TU Schedule Routine, Read Routine (OP Routine) 11/12/2023 1:30 PM CDT Encounter for screening mammogram for malignant neoplasm of breast ALBUMIN CREATININE RATIO, URINE Routine 10/01/2023 10:37 AM CDT Type 2 diabetes mellitus without complication, without long-term current use of insulin (HCC) DEXA AXIAL SKELETON BONE DENSITY 1 OR MORE SITES Schedule Routine, Read Routine (OP Routine) 09/26/2023 9:49 AM CDT Post-menopausal EGFR Routine 03/26/2023 10:32 AM SENIOR CLIMATE ADVISOR Type 2 diabetes mellitus without complication, without long-term current use of insulin (HCC) HEMOGLOBIN A1C Routine 03/26/2023 10:32 AM SENIOR CLIMATE ADVISOR Type 2 diabetes mellitus without complication, without long-term current use of insulin (HCC) LIPID PANEL Routine 03/26/2023 10:32 AM SENIOR CLIMATE ADVISOR Type 2 diabetes mellitus without complication, without long-term current use of insulin (HCC) HM DIABETES EYE EXAM Routine 02/20/2023 STOOL DNA COLOGUARD Routine 04/13/2022 10:45 AM SENIOR CLIMATE ADVISOR Colon cancer screening COLONOSCOPY Routine 10/13/2011 from Last 3 Months or Most Recently Relevant to Health Maintenance Results * SCREENING MAMMOGRAM BILATERAL W TU (11/12/2023 1:30 PM CDT) Anatomical Region Laterality Modality Breast Bilateral Mammography Impressions 11/12/2023 1:51 PM CDT BI-RADS ATLAS category (overall): 2 - Benign There is no mammographic evidence of malignancy. A 1 year screening mammogram is recommended. The patient has been or will be contacted. We recommend annual screening mammography for women at average risk of breast cancer beginning at age 40, based on guidelines of the [employer] [employer] (ACR Practice Parameter for the Performance of Screening and Diagnostic Mammography) and [place] [employer]. For women with and elevated risk of breast cancer, please refer to the ACR Practice Parameter for specific screening recommendations. The patient will be entered into a reminder system with a target due date of 1 year for her next screening exam. Narrative 11/12/2023 1:51 PM CDT SCREENING MAMMOGRAM BILATERAL W TU: 11/12/23 The study was acquired using full field digital technology and interpreted from soft copy. 2D digital mammographic views, as well as 3D digital tomosynthesis were performed in the CC and MLO projections. CLINICAL: Encounter for screening mammogram for malignant neoplasm of breast (order placed for annual mammo). No relevant medical history has been documented for this patient. History of breast cancer in Sister, Niece. COMPARISONS: 11/02/2022 Screening Mammogram Bilateral W Tu 11/01/2021 Screening Mammogram Bilateral W Tu 08/12/2020 Screening Mammogram Bilateral W Tu 08/07/2017 Screening Mammogram Bilateral W Tu BREAST TISSUE: There are scattered areas of fibroglandular density. FINDINGS: There is a biopsy clip and small adjacent benign mass in the left breast at 12-1 o'clock, middle depth. There is no new suspicious finding in either breast on mammogram. us Chata Shane IMG MAMMO PROCEDURES Fin al Result * (ABNORMAL) Albumin Creatinine Ratio, Urine (10/01/2023 10:37 AM CDT) Albumin Ur 364.0 mg/L Comment: Interpretive Data No reference range established. Current interpretive data was last revised 2018. Creatinine Ur 60.9 mg/dL [facility] Comment: Interpretive Data No reference range established. Current interpretive data was last revised 2018. Albumin Creatinine Ratio, Ur 598(H) 1 - 29 mg/g [facility] Urine 10/01/2023 10:3 7 AM CDT 10/01/2023 11:32 AM CDT us Abhi Lopez MD LAB URINE ORDERABLES Final Re sult [facility] [id number] [facility] Department [place] [address] * Dexa Axial Skeleton Bone Density 1 Or 2 Site (09/26/2023 9:49 AM CDT) Anatomical Region Laterality Modality Body N/A Mammography 09/26/2023 10:0 6 AM CDT Narrative 09/26/2023 10:07 AM CDT EXAM DESCRIPTION: DEXA AXIAL SKELETON BONE DENSITY 1 OR MORE SITES REASON FOR STUDY: 72 y/o year old F with given history of: Post menopausal status. History prior fracture. Patient takes vitamin-D. 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) CLINICAL INFORMATION: Current height: 62 inches Maximum height: 63 inches Weight: 205 pounds Risk factors: Prior fracture COMPARISON: None available FINDINGS: AP LUMBAR SPINE L1-L4: Total BMD is 1.145 g/cm2 T-score is 0.9 LEFT HIP: Total BMD is 0.928 g/cm2 T-score is -0.1 Femoral neck BMD is 0.709 g/cm2 T-score is -1.3 FRAX: 10 year risk for a major osteoporotic fracture is 14 %, 10 year risk for a hip fracture is 1.6 % IMPRESSION: Low bone mass REFERENCE: Bone mineral density: T-Score: Normal (T-score above or = -1.0) Low bone mass (T-score between -1.0 and -2.5) replaces the previously used term osteopenia Osteoporosis (T-score = or below -2.5) Z-Score: Within the expected range for age (Z-score above -2.0) Below the expected range for age (Z-score is -2.0 or below) Please see below follow up recommendations. Medical evaluation for secondary causes of low bone mineral density may be appropriate. FRAX is a World Health Organization validated fracture risk assessment tool that calculates a person's 10 year probability of a major osteoporosis related fracture and hip fracture. According to the National Osteoporosis Foundation guidelines, postmenopausal women and men age 50 or older with low bone mass and a 10 year probability of a major osteoporosis related fracture = or greater than 20% or a 10 year probability of a hip fracture = or greater than 3% should be considered for pharmacological treatment for the prevention of osteoporosis. For further information, including treatment recommendations, please refer to the 2019 ISCD Official Positions (http://www.iscd.org) and the NOF's Clinician's Guide to Prevention and Treatment of Osteoporosis (http://www.nof.org/professionals/clinical-guidelines) THIS IS AN ELECTRONICALLY VERIFIED FINAL REPORT 09/26/2023 10:07 AM - Electronically signed by Venita Pugh M.D. TW: TW Report ID: [id number] Reading Location: [id number] Procedure Note Venita Pugh MD - 09/26/2023 EXAM DESCRIPTION: DEXA AXIAL SKELETON BONE DENSITY 1 OR MORE SITES REASON FOR STUDY: 72 y/o year old F with given history of: Post menopausal status. History prior fracture. 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 (S/N [id number]) CLINICAL INFORMATION: Current height: 62 inches Maximum height: 63 inches Weight: 205 pounds Risk factors: Prior fracture COMPARISON: None available FINDINGS: AP LUMBAR SPINE L1-L4: Total BMD is 1.145 g/cm2 T-score is 0.9 LEFT HIP: Total BMD is 0.928 g/cm2 T-score is -0.1 Femoral neck BMD is 0.709 g/cm2 T-score is -1.3 FRAX: 10 year risk for a major osteoporotic fracture is 14 %, 10 year risk for ahip fracture is 1.6 % IMPRESSION: Low bone mass REFERENCE: Bone mineral density: T-Score: Normal (T-score above or = -1.0) Low bone mass (T-score between -1.0 and -2.5) replaces thepreviously used term osteopenia Osteoporosis (T-score = or below -2.5) Z-Score: Within the expected range for age (Z-score above -2.0) Below the expected range for age (Z-score is -2.0 or below) Please see below follow up recommendations. Medical evaluation forsecondary causes of low bone mineral density may be appropriate. FRAX is a World Health Organization validated fracture risk assessmenttool that calculates a person's 10 year probability of a major osteoporosisrelated fracture and hip fracture. According to the National OsteoporosisFoundation guidelines, postmenopausal women and men age 50 or older with low bonemass and a 10 year probability of a major osteoporosis related fracture = or greater than 20% or a 10 year probability of a hip fracture = or greaterthan 3% should be considered for pharmacological treatment for the preventionof osteoporosis. For further information, including treatment recommendations, please referto the 2019 ISCD Official Positions (http://www.iscd.org) and the NOF's Clinician's Guide to Prevention and Treatment of Osteoporosis (http://www.nof.org/professionals/clinical-guidelines) THIS IS AN ELECTRONICALLY VERIFIED FINAL REPORT 09/26/2023 10:07 AM - Electronically signed by Venita Pugh M.D. TW: TW Report ID: [id number] Reading Location: [id number] us Abhi Lopez MD IMG DXA PROCEDURES Final Resu lt * eGFR (03/26/2023 10:32 AM SENIOR CLIMATE ADVISOR) eGFR 92 mL/min/1. 73 m2 [facility] Comment: Interpretive Data Reference Interval Normal >/= 90 mL/min/1.73m2 Mildly decreased* 60 - 89 mL/min/1.73m2 Mildly to moderately decreased 45 - 59 mL/min/1.73m2 Moderately to severely decreased 30 - 44 mL/min/1.73m2 Severely decreased 15 - 29 mL/min/1.73m2 Kidney Failure < 15 mL/min/1.73m2 *Relative to young adult level Estimated glomerular filtration rate is determined by the 2020 CKD-EPI equation recommended by the National Kidney Foundation (A Unifying Approach to GFR Estimation: Recommendations of the NKF-ASK Task Force on Reassessing the Inclusion of Race in Diagnosing Kidney Disease, JASN 2020). The CKD-EPI equation should not be used for patients with unstable renal function and has not been validated in children and those over 70. Current interpretive data was last reviewed 2020. Blood 03/26/2023 10:3 2 AM SENIOR CLIMATE ADVISOR 03/26/2023 11:42 AM SENIOR CLIMATE ADVISOR Abhi Lopez MD LAB BLOOD ORDERABLES Final Re sult [facility] Organization Address City/State/ZIP Co de Phone Number [id number] [facility] Department of Laboratories [place], [place] [id number] * (ABNORMAL) Hemoglobin A1c (03/26/2023 10:32 AM SENIOR CLIMATE ADVISOR) Hgb A1C 8.1(H) 4.0 - 5.6 % [facility] Estimated Average Glucose 186 mg/dL [facility] Comment: The ADA recommends reporting an estimated Average Glucose (eAG) with all Hemoglobin A1c results using the equation derived from a study of 507 normal and diabetic adults. Minority populations were underrepresented and children were not included. (Diabetes Care 31:7170-1400, 2008). The eAG is not equivalent to a fasting glucose. Blood 03/26/2023 10:3 2 AM SENIOR CLIMATE ADVISOR 03/26/2023 11:42 AM SENIOR CLIMATE ADVISOR us Abhi Lopez MD LAB BLOOD ORDERABLES Final Re sult [facility] [id number] [facility] Department [place] [address] * (ABNORMAL) Lipid panel (03/26/2023 10:32 AM SENIOR CLIMATE ADVISOR) Cholesterol 135 30 - 199 mg/dL [facility] Comment: Interpretive Data Ages < or = 19 years Acceptable: <170 mg/dL Borderline high: 170-199 mg/dL High: >or= 200 mg/dL Ages > or = 20 years Desirable: <200 mg/dL Borderline high: 200-239 mg/dL High: >or= 240 mg/dL Literature References: 1. Expert Panel on Integrated Guidelines for Cardiovascular Health and Risk Reduction in Children and Adolescents. Pediatrics 2011;128:S213 2. NCEP Expert Panel. Circulation 2004;110:227 Current Interpretive Data was last revised on 2017. Triglycerides 166(H) <=149 mg/dL [facility] Comment: Interpretive Data Ages < or = 9 years Acceptable: <75 mg/dL Borderline high: 75-99 mg/dL High: >or= 100 mg/dL Ages 10 to 20 years Acceptable: <90 mg/dL Borderline high: 90-129 mg/dL High: >or= 130 mg/dL Ages > or = 20 years Desirable: <150 mg/dL Borderline high: 150-199 mg/dL High: 200-499 mg/dL Very high: >or= 499 mg/dL Literature References: 1. Expert Panel on Integrated Guidelines for Cardiovascular Health and Risk Reduction in Children and Adolescents. Pediatrics 2011;128:S213 2. NCEP Expert Panel. Circulation 2004;110:227 Current Interpretive Data was last revised on 2017. HDL 43 >=40 mg/dL [facility] Comment: Interpretive Data Ages < or = 19 years Acceptable: >45 mg/dL Borderline low: 40-45 mg/dL Low: <40 mg/dL Ages > or = 20 years Desirable: >or= 60 mg/dL Low: <40 mg/dL Literature References: 1. Expert Panel on Integrated Guidelines for Cardiovascular Health and Risk Reduction in Children and Adolescents. Pediatrics 2011;128:S213 2. NCEP Expert Panel. Circulation 2004;110:227 Current Interpretive Data was last revised on 2017. LDL, calculated 59 <=129 mg/dL [facility] Comment: Interpretive Data Ages < or = 19 years Acceptable: <110 mg/dL Borderline high: 110-129 mg/dL High: >or= 130 mg/dL Ages > or = 20 years Optimal: <100 mg/dL Near optimal: 100-129 mg/dL Borderline high: 130-159 mg/dL High: >160 mg/dL Literature References: 1. Expert Panel on Integrated Guidelines for Cardiovascular Health and Risk Reduction in Children and Adolescents. Pediatrics 2011;128:S213 2. NCEP Expert Panel. Circulation 2004;110:227 Current Interpretive Data was last revised on 2017. Non-HDL Cholesterol 92 mg/dL [facility] Comment: Interpretive Data Ages < or = 19 years Acceptable: <120 mg/dL Borderline high: 120-144 mg/dL High: >145 mg/dL Ages > or = 20 years When triglycerides are >200 mg/dL, Non-HDL cholesterol is a secondary target of therapy with treatment goals that are 30 mg/dL greater than the LDL cholesterol target. Literature References: 1. Expert Panel on Integrated Guidelines for Cardiovascular Health and Risk Reduction in Children and Adolescents. Pediatrics 2011;128:S213 2. NCEP Expert Panel. Circulation 2004;110:227 Current Interpretive Data was last revised on 2017. Chol/HDL ratio 3 [facility] Blood 03/26/2023 10:3 2 AM SENIOR CLIMATE ADVISOR 03/26/2023 11:42 AM SENIOR CLIMATE ADVISOR Narrative [facility] - 03/26/2023 12:13 PM SENIOR CLIMATE ADVISOR Has the patient been fasting for 8 hours or more?->No us Abhi Lopez MD LAB BLOOD ORDERABLES Final Re sult [facility] [address] [facility] Department [place] [address] * DIABETES EYE EXAM (02/20/2023) us Historical Provider [facility] Final Result * Stool DNA - Cologuard (04/13/2022 10:45 AM SENIOR CLIMATE ADVISOR) Stool DNA - Cologuard Negative Negative [facility] (CLIA #:[id number]) Comment: NEGATIVE TEST RESULT. A negative Cologuard result indicates a low likelihood that a colorectal cancer (CRC) or advanced adenoma (adenomatous polyps with more advanced pre-malignant features) is present. The chance that a person with a negative Cologuard test has a colorectal cancer is less than 1 in 1500 (negative predictive value >99.9%) or has an advanced adenoma is less than 5.3% (negative predictive value 94.7%). These data are based on a prospective cross-sectional study of 10,000 individuals at average risk for colorectal cancer who were screened with both Cologuard and colonoscopy. (Abner He et al, N Engl J Med 2014;370(14):2234-3289) The normal value (reference range) for this assay is negative. COLOGUARD RE-SCREENING RECOMMENDATION: Periodic colorectal cancer screening is an important part of preventive healthcare for asymptomatic individuals at average risk for colorectal cancer. Following a negative Cologuard result, the [place] [employer] and U.S. Multi-Society Task Force screening guidelines recommend a Cologuard re-screening interval of 3 years. References: [place] [employer] Guideline for Colorectal Cancer Screening: https://www.cancer.org/cancer/jooti-udedxm-lutvfo/jyaczdzst-jttonnwca-ikboson/ac s-rec ommendations.html.; Dre SIMMONS, Janene CR, Amanda PetersK, Colorectal Cancer Screening: Recommendations for Physicians and Patients from the U.S. Multi-Society Task Force on Colorectal Cancer Screening , Am J Gastroenterology 2017; 112:5842-0195. TEST DESCRIPTION: Composite algorithmic analysis of stool DNA-biomarkers with hemoglobin immunoassay. Quantitative values of individual biomarkers are not reportable and are not associated with individual biomarker result reference ranges. Cologuard is intended for colorectal cancer screening of adults of either sex, 45 years or older, who are at average-risk for colorectal cancer (CRC). Cologuard has been approved for use by the U.S. FDA. The performance of Cologuard was established in a cross sectional study of average-risk adults aged 50-84. Cologuard performance in patients ages 45 to 49 years was estimated by sub-group analysis of near-age groups. Colonoscopies performed for a positive result may find as the most clinically significant lesion: colorectal cancer [4.0%], advanced adenoma (including sessile serrated polyps greater than or equal to 1cm diameter) [20%] or non- advanced adenoma [31%]; or no colorectal neoplasia [45%]. These estimates are derived from a prospective cross-sectional screening study of 10,000 individuals at average risk for colorectal cancer who were screened with both Cologuard and colonoscopy. (Abner Schmidt. et al, N Engl J Med 2014;370(14):1381-9564.) Cologuard may produce a false negative or false positive result (no colorectal cancer or precancerous polyp present at colonoscopy follow up). A negative Cologuard test result does not guarantee the absence of CRC or advanced adenoma (pre-cancer). The current Cologuard screening interval is every 3 years. ([place] [employer] and U.S. Multi-Society Task Force). Cologuard performance data in a 10,000 patient pivotal study using colonoscopy as the reference method can be accessed at the following location: www.Everypost/results. Additional description of the Cologuard test process, warnings and precautions can be found at www.cologuard.com. Stool 04/13/2022 10:4 5 AM SENIOR CLIMATE ADVISOR 04/14/2022 12:06 PM SENIOR CLIMATE ADVISOR Abhi Lopez MD LAB BODY FLUIDS AND STOOLS OR DERABLES Final Result [facility] (CLIA #:[id number]) [place] [address] [place] [place] [address] * Colonoscopy (10/13/2011) Anatomical Region Laterality Modality Other Historical Provider ENDOSCOPY PROCEDURES Brigitte l Result from Last 3 Months or Most Recently Relevant to Health Maintenance Insurance MEDICARE [facility] [place] [address] [place] [address] MEDICARE [facility] [place] [address] MEDICARE [facility] MEDICARE SUPPLEMENT Care Teams Configuration Analyst Relationship Specialty Start Date End Date Abhi Lopez MD PCP - General 02/10/17 Collin Longo MD Inside Phone Sales Cardiology 09/19/18
--- OUTSIDE RECORDS SUMMARY | 2024-05-05 20:44 | XMS_ITS | Encounter Summary ---
Author Organization [facility] Facility Care Team Providers Care It Senior Software Engineer Java Name Role Phone Abhi Lopez MD Primary Care Provider [phone] Collin Longo MD Unavailable [phone] Encounter Details Date Type Department Care Team (Latest Contact Info) Description 12/30/2002 Orders Only [facility]IN[facility] ProviderZahira MD [address] [place] [id number] Social History Tobacco Use Types Packs/Day Years Used Date Smoking Tobacco: Never Assessed Comments Unknown Sex and Gender Information Value Date Recorded Sex Assigned at Not on file Legal Sex Female 2:57 AM FOLDER MACHINE ADJUSTER Gender Identity Not on file Sexual Orientation Straight 12/27/2019 12 :40 PM FOLDER MACHINE ADJUSTER documented as of this encounter Plan of [...] on filedocumented in this encounter Care Teams It Senior Software Engineer Java Relationship Specialty Start Date End Date Abhi Lopez MD PCP - General 02/10/17 Collin Longo MD Sound Effects Manager Cardiology 09/19/18 documented as of this encounter
--- OUTSIDE RECORDS SUMMARY | 2024-05-05 20:44 | XMS_ITS | Clinical Summary ---
Author Organization [facility] Address [address] [place] [address] Care Team Providers Care 911 Operator Name Role Phone Abhi Lopez MD Primary Care Provider [phone] Collin Longo MD Unavailable [phone] Allergies Active Allergy Reactions Criticality Noted Date Comments Elan Inhibitors Unknown 06/25/2018 Medications ubidecarenone (COENZYME Q10) 100 mg tablet Take by mouth Active omega 5-jqm-ivf-fish oil 1,000 mg (120 mg-180 mg) capsule [...] congestive heart failure (HCC),Coronary artery disease of [place] artery [place] heart with stable angina pectoris,Pulmonary hypertension (HCC),Ischemic cardiomyopathy Take 1 tablet (20 mEq total) by mouth 2 (two) times a day 180 tablet 1 11/27/19 23 Active furosemide (LASIX) 40 mg tabletIndications: Persistent atrial fibrillation (HCC),Acute on chronic combined systolic and diastolic congestive heart failure (HCC),Coronary artery disease of [place] artery [place] heart with stable angina pectoris,Pulmonary hypertension (HCC) Take 1 tablet (40 mg total) by mouth 2 (two) times a day 180 tablet 1 11/27/19 23 Active Additional Information Patient taking differently:40 mg oralDaily, Reported on 03/19/2024 simvastatin (ZOCOR) 40 mg tabletIndications: Persistent atrial fibrillation (HCC),Acute on chronic combined systolic and diastolic congestive heart failure (HCC),Coronary artery disease of [place] artery of [place] heart with stable angina pectoris,Pulmonary hypertension (HCC) Take 1 tablet (40 mg total) by mouth nightly 90 tablet 3 02/22/19 24 Active losartan-hydroCHLO ROthiazide (HYZAAR) 100-12.5 mg per tabletIndications: Persistent atrial fibrillation (HCC),Acute on chronic combined systolic and diastolic congestive heart failure (HCC),Coronary artery disease of [place] artery of [place] heart with stable angina pectoris,Pulmonary hypertension (HCC) TAKE 1 TABLET DAILY 90 tablet 3 06/24/19 24 Active vit C,B-Cn-qapzv-lutei n-zeaxan 250-90-40-1 mg capsule Take by mouth 2 (two) times a day Active metFORMIN XR (GLUCOPHAGE XR) 500 mg 24 hr tablet TAKE 2 TABLETS TWICE A DAY 360 tablet 3 01/17/20 24 Active metoprolol XL (TOPROL-XL) 200 mg extended release tabletIndications: Persistent atrial fibrillation (HCC),Acute on chronic combined systolic and diastolic congestive heart failure (HCC),Coronary artery disease of [place] artery of [place] heart with stable angina pectoris,Pulmonary hypertension (HCC) Take 1 tablet (200 mg total) by mouth daily 90 tablet 3 01/27/20 24 Active rivaroxaban (XARELTO) 20 mg tablet Take 1 tablet (20 mg total) by mouth daily 90 tablet 1 03/05/19 25 Active dapagliflozin propanediol (FARXIGA) 10 mg tablet Take 1 tablet (10 mg total) 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 Does not wish [...] 07/30/2018 Assessment & Plan (03/06/2022 11:19 AM PUBLIC RELATIONS): Persistent, rate controlled. Continue metoprolol succinate for [...] anticoagulation Assessment & Plan (12/28/2019 8:06 AM PUBLIC RELATIONS): Rate controlled. Continue Toprol and anticoagulation Assessment & Plan (03/03/2019 3:02 PM PUBLIC RELATIONS): Rates controlled. Continue Toprol 100. Assessment & [...] artery disease of [place] artery of [place] heart with stable angina pectoris 07/30/2018 Assessment & Plan (03/06/2022 11:18 AM PUBLIC RELATIONS): Recent stress test with low risk findings. [...] 20 Assessment & Plan (12/28/2019 8:05 AM PUBLIC RELATIONS): Recent GFR greater than 50. Continue Xarelto 20 mg daily Assessment & Plan (03/03/2019 3:02 PM PUBLIC RELATIONS): Recent GFR greater than 50. Continue Xarelto [...] Tylenol. Assessment & Plan (12/28/2019 8:12 AM PUBLIC RELATIONS): Controlled. With repeat repeat blood pressure 135/84 Assessment & Plan (03/03/2019 3:02 PM PUBLIC RELATIONS): Repeat blood pressure 115/75. Continue current medications Assessment & Plan (10/02/2018 4:19 PM CDT): Continue losartan DM2 (diabetes mellitus, type 2) 12/07/2016 Hyperlipidemia 12/07/2016 Assessment & Plan (12/28/2019 8:12 AM PUBLIC RELATIONS): Continue simvastatin Resolved Problems Problem Noted Date Diagnosed Date Resolved Date Syncope and collapse 05/24/2022 025 Morbid (severe) obesity due to excess calories 03/28/2022 03/19/2024 Type 2 diabetes mellitus with hyperglycemia 09/21/2021 03/19/2024 Acute on chronic combined sy stolic and diastolic congestive heart failure 03/28/202103/19 Assessment & Plan (03/06/2022 11:18 AM PUBLIC RELATIONS): Clinically euvolemic. Continue furosemide 40 mg b.i.d.. [...] loss Assessment & Plan (12/28/2019 8:05 AM PUBLIC RELATIONS): Encouraged dieting and weight loss Assessment & Plan (03/03/2019 3:02 PM PUBLIC RELATIONS): Encouraged dieting and weight loss Assessment & Plan (10/02/2018 4:28 PM CDT): Encouraged dieting Assessment & Plan (07/30/2018 12:00 PM CDT): Encouraged dieting and weight loss Other specified anxiety disorders 03/27/2018 03/19/2024 Encounters Date Type Department Care Team Description 03/19/2024 8:15 AM PUBLIC RELATIONS Office Visit [facility] Medical [facility] at [address] [place] [phone] Abhi Lopez MD Type 2 diabetes mellitus without complication, without long-term current use of insulin (HCC) (Primary Dx); Coronary artery disease of [place] artery of [place] heart with stable angina pectoris; Primary hypertension; Mixed hyperlipidemia; Chronic right-sided low back pain with right-sided sciatica; Chronic systolic congestive heart failure (HCC) 03/19/2024 Documentation [facility] Medical [facility] at [address] [place] [address] Abhi Lopez MD Med Refill 03/04/2024 Telephone [facility] at [address] [place] [address] Abhi Lopez MD Med Refill 02/14/2024 Telephone [facility] [address] [place] [address] [address] [place] [address] Earlene Chirinos MD Med Refill from Last 3 Months Immunizations Immunization Administration Dates Next Due COVID-19 mRNA ([employer]) 0.3 m L (30 mcg) vaccine (12 [...] 11/23/2014 ZOSTER LIVE 11/02/2013 ZOSTER Recombinant 05/23/2021,04/03/2021 Surgical History Surgery Date Site/Laterality Comments CARDIAC CATHETERIZATION HYSTERECTOMY LASIK for glaucoma COLONOSCOPY 02/11/2013 - 02/10/2014 BREAST BIOPSY Medical History Medical History Date Comments CAD (coronary artery disease) HLD (hyperlipidemia) Obesity Hx of angioplasty HTN (hypertension) DM (diabetes mellitus) (HCC) GERD (gastroesophageal reflux disease) Glaucoma History of endometrial cancer Family History Medical History Relation Name Comments Cancer Brother Heart attack Father Cancer Maternal Grandfather Heart attack Maternal Grandmother Heart attack Mother Breast cancer Niece Diabetes Other Heart disease Other Hypertension Other Kidney disease Other Stroke Other No Known Problems Paternal Grandfather No Known Problems Paternal Grandmother Cancer Sister 1 Breast cancer Sister 2 Cancer Sister 2 Relation Name Status Comments Brother Father Maternal Grandfather Maternal Grandmother Mother Niece Other Paternal Grandfather Paternal Grandmother Sister 1 Sister 2 Social History Tobacco Use Types Packs/Day Years [...] on file Legal Sex Female 2:57 AM PUBLIC RELATIONS Gender Identity Not on file Sexual Orientation Straight 12/27/2019 12 :40 PM PUBLIC RELATIONS Obstetrics History Para Term AB IAB SAB Ectopic Multiple Livin g Live Births 2 2 2 Date Outcome GA Total Labor Labor/2nd/3rd Weight Sex Type Anes PTL Solange A1 A5 Name Clin Term Term Last Filed Vital Signs Vital Sign Reading Time Taken Comments Blood Pressure 148/88 03/19/2024 9:09 AM PUBLIC RELATIONS Pulse 86 03/19/2024 8:12 AM PUBLIC RELATIONS Temperature 36.6 C (97.8 F) 03/19/2024 8:12 AM PUBLIC RELATIONS Respiratory Rate 18 10/11/2023 11:20 AM CDT Oxygen Saturation 95% 03/19/2024 8:12 AM PUBLIC RELATIONS Inhaled Oxygen Concentration - - Weight 91.7 kg (202 lb 1.6 oz) 03/19/2024 8:12 A M PUBLIC RELATIONS Height 157.5 cm (5' 2 ) 03/19/2024 8:12 AM PUBLIC RELATIONS Body Mass Index 36.96 03/19/2024 8:12 AM PUBLIC RELATIONS Plan of Treatment Health Maintenance Due Date Last Done Comments Hepatitis C Screening 1950 Hepatitis B Screening 12/23/1969 Foot Exam 03/28/2023 03/28/2022, 09/11, 03/22/2021, Additional history exists Hemoglobin A1C 09/24/2023 03/26/2023, 03/14, 09/20/2021, Additional history exists Dilated Eye Exam 02/21/2024 02/20/2023, , 02/02/2022, Additional history exists Lipid Panel 03/26/2024 03/26/2023, 03/14, 09/20/2021, Additional history exists eGFR 03/26/2024 03/26/2023, 05/12, 03/26/2022, Additional history exists Covid-19 Vaccine (2023-2 5 season) 2024 10/24/2023, 01/11/2023, 01/11/2023, Additional history exists Depression Screening 09/10/2024 09/11/2023, 03/28/2022, 09/21/2021, Additional history exists Fall Risk Assessment 09/10/2024 09/11/2023, 03/28/2022, 09/21/2021, Additional history exists Well Visit 65+ 09/10/2024 09/11/2023, 03/14, 03/22/2021, Additional history exists Albumin Creatinine Ratio, Urine 09/30/2024 , 03/02/2021 Breast Cancer Screening-Mammogram 11/11/2024 11/12/2023, 11/02/2022, 11/01/2021, Additional history exists DTaP/Tdap/Td Vaccine (2 - Td or Tdap) 11/23/2024 11/23/2014 Colon Cancer Screening-DNA Stool 04/13/2025 04/13/2022, 10/13/2011, 10/01/2011 Osteoporosis Screening-Bone Density Scan 09/25/2025 09/26/2023, 03/28/2022 Colon Cancer Screening-CT Colonography Discontinued 10/13/2011, 10/01/2011 Colon Cancer Screening-Colonoscopy Discontinued 10/13/2011, 10/01/2011 Colon Cancer Screening-Sigmoidoscopy Discontinued 10/13/2011, 10/01/2011 Zoster Vaccine Completed 05/23/2021, 03/15, 11/02/2013 Colon Cancer Screening-FIT Discontinued 04/13, 10/13/2011, 10/01/2011 Influenza Vaccine Completed 10/24/2023, , 01/11/2023, Additional history exists Pneumococcal vaccine 65+ Completed 024, 03/22/2021, 12/09/2018 Procedures Procedure Name Priority Date/Time Associated Diagnosis [...] CDT Post-menopausal EGFR Routine 03/26/2023 10:32 AM PUBLIC RELATIONS Type 2 diabetes mellitus without complication, without long-term current use of insulin (HCC) HEMOGLOBIN A1C Routine 03/26/2023 10:32 AM PUBLIC RELATIONS Type 2 diabetes mellitus without complication, without long-term current use of insulin (HCC) LIPID PANEL Routine 03/26/2023 10:32 AM PUBLIC RELATIONS Type 2 diabetes mellitus without complication, without long-term current use of insulin (HCC) HM DIABETES EYE EXAM Routine 02/20/2023 STOOL DNA COLOGUARD Routine 04/13/2022 10:45 AM PUBLIC RELATIONS Colon cancer screening COLONOSCOPY Routine 10/13/2011 from [...] age 40, based on guidelines of the [place] [employer] (ACR Practice Parameter for the Performance of Screening and Diagnostic Mammography) and [place] [employer]. For women [...] patient. History of breast cancer in Sister, Kaylaece. COMPARISONS: 11/02/2022 Screening Mammogram Bilateral W Tu [...] either breast on mammogram. us Chata Shane IM MAMMO PROCEDURES Fin al Result * (ABNORMAL) Albumin Creatinine Ratio, Urine (10/01/2023 10:37 AM CDT) Albumin Ur 364.0 mg/L Comment: Interpretive Data No reference range established. Current interpretive data was last revised 2018. Creatinine Ur 60.9 mg/dL CERNER Comment: Interpretive Data No reference range established. Current interpretive data was last revised 2018. Albumin Creatinine Ratio, Ur 598(H) 1 - 29 mg/g [facility] Urine 10/01/2023 10:3 7 AM CDT 10/01/2023 11:32 AM CDT us Abhi Lopez MD LAB URINE ORDERABLES Final Re sult [facility] [address] [facility] Department [place] [address] * Dexa Axial Skeleton Bone Density 1 [...] Patient takes vitamin-D. 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 TW: TW Report ID: [id number] Reading Location: [id number] Procedure Note Venita Pugh MD - 09/26/2023 EXAM DESCRIPTION: DEXA AXIAL SKELETON BONE DENSITY 1 OR MORE SITES REASON FOR STUDY: 72 y/o year old F with given history of: Post menopausal status. History prior fracture. 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 TW: TW Report ID: [id number] Reading Location: [place] [address] us Abhi Lopez MD IMG DXA PROCEDURES Final Resu lt * eGFR (03/26/2023 10:32 AM PUBLIC RELATIONS) eGFR 92 mL/min/1. 73 m2 [facility] TATUM [...] of Race in Diagnosing Kidney Disease, JASN 202). The CKD-EPI equation should not be used for patients with unstable renal function and has not been validated in children and those over 70. Current interpretive data was last reviewed 2020. Blood 03/26/2023 10:3 2 AM PUBLIC RELATIONS 03/26/2023 11:42 AM PUBLIC RELATIONS Abhi Lopez MD LAB BLOOD ORDERABLES Final Re sul Performing Organization Address [facility] de Phone Number [address] [place] [address] * (ABNORMAL) Hemoglobin A1c (03/26/2023 10:32 AM PUBLIC RELATIONS) Hgb A1C 8.1(H) 4.0 - 5.6 % [facility] Estimated Average Glucose 186 mg/dL [facility] Comment: The ADA recommends reporting an estimated Average Glucose (eAG) with all Hemoglobin A1c results using the equation derived from a study of 507 normal and diabetic adults. Minority populations were underrepresented and children were not included. (Diabetes Care 31:8078-2730, 2008). The eAG is not equivalent to a fasting glucose. Blood 03/26/2023 10:3 2 AM PUBLIC RELATIONS 03/26/2023 11:42 AM PUBLIC RELATIONS Abhi Lopez MD LAB BLOOD ORDERABLES Final Re sult Performing Organization Address [facility] Co de Phone Number [address] [address] * (ABNORMAL) Lipid panel (03/26/2023 10:32 AM PUBLIC RELATIONS) Cholesterol 135 30 - 199 mg/dL [facility] [...] last revised on 2017. Chol/HDL ratio 3 [facility] Blood 03/26/2023 10:3 2 AM PUBLIC RELATIONS 03/26/2023 11:42 AM PUBLIC RELATIONS Narrative [facility] - 03/26/2023 12:13 PM PUBLIC RELATIONS Has the patient been fasting for 8 hours or more?->No Abhi Lopez MD LAB BLOOD ORDERABLES Final Re sult [facility] [address] [facility] [place] [address] * DIABETES EYE EXAM (02/20/2023) Historical Provider HEALTH MAINTENANCE Final Result * Stool DNA - Cologuard (04/13/2022 10:45 AM PUBLIC RELATIONS) Stool DNA - Cologuard Negative Negative [employer] (CLIA #:[id number]) Comment: NEGATIVE TEST RESULT. A negative Cologuard [...] screened with both Cologuard and colonoscopy. (Abner Sow, N Engl J Med 2014;370(14):2427-4936) The normal value (reference range) for this assay is negative. COLOGUARD RE-SCREENING RECOMMENDATION: Periodic colorectal cancer screening is an important part of preventive healthcare for asymptomatic individuals at average risk for colorectal cancer. Following a negative Cologuard result, the [place] [employer] and U.S. Multi-Society Task Force screening guidelines recommend a Cologuard re-screening interval of 3 years. References: [place] [employer] Guideline for Colorectal Cancer Screening: https://www.cancer.org/cancer/qmjyr-kcwakn-urtgnc/afnzsehwn-mtnxspqoq-vmpvoqd/ac s-rec ommendations.html.; Dre DK, Janene CHRISTINA, Amanda PetersK, Colorectal Cancer Screening: Recommendations for Physicians and Patients from the U.S. Multi-Society Task Force on Colorectal Cancer Screening , Am J Gastroenterology 2017; 112:7710-3973. TEST DESCRIPTION: Composite algorithmic analysis of stool [...] screened with both Cologuard and colonoscopy. (Abner Narayan al, N Engl J Med 2014;370(14):0718-0940.) Cologuard may produce a false negative or false positive result (no colorectal cancer or precancerous polyp present at colonoscopy follow up). A negative Cologuard test result does not guarantee the absence of CRC or advanced adenoma (pre-cancer). The current Cologuard screening interval is every 3 years. ([place] [employer] and U.S. Multi-Society Task Force). Cologuard performance data in a 10,000 patient pivotal study using colonoscopy as the reference method can be accessed at the following location: www.[employer].icomply/results. Additional description of the Cologuard test process, warnings and precautions can be found at www.MWHSoguard.com. Stool 04/13/2022 10:4 5 AM PUBLIC RELATIONS 04/14/2022 12:06 PM PUBLIC RELATIONS Abhi Lopez MD LAB BODY FLUIDS AND STOOLS OR DERABLES Final Result [facility] (CLIA #:[id number]) [place] [address] [address] * Colonoscopy (10/13/2011) Anatomical Region Laterality Modality Other Historical Provider ENDOSCOPY PROCEDURES Brigitte l Result from Last 3 Months or Most Recently Relevant to Health Maintenance Insurance MEDICARE [place] [facility] [place] RA[place]AD [facility] MEDICARE RAILROAD [facility] MEDICARE SUPPLEMENT Care Teams 911 Operator Relationship Specialty Start Date End Date Abhi Lopez MD PCP - General 02/10/17 Collin Longo MD Mine Environmental Engineer Cardiology 09/19/18
[2024-05-05 20:56] VITALS: BP 162/98; PULSE 93; RESP 15; TEMP 37; O2SAT 98
--- NOTE | 2024-05-05 21:26 | ED.FALL ---
HPI - Fall General Chief Complaint: Fall Stated Complaint: Slid on step-head injury, no LOC, lt wrist, rt arm Time Seen by Provider: 05/05/24 21:23 Source: patient Mode of arrival: ambulatory Limitations: no limitations History of Present Illness HPI Narrative: Patient presents after she accidentally fell and slid down 1 step. She states that she was walking her heel caught on the step and had is why she fell. She denies any loss of consciousness. She struck her head as well as her right elbow is also complaining initially of left wrist pain but some right wrist pain my assessment. Denies any paresthesias in arms or legs. No vision changes. No loss of consciousness. 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 Because she is on Xarelto for atrial fibrillation, she presents to the emergency department. She also reports having some superficial abrasions on her knees but states that they do not hurt. Related Data Home Medications ?Medication ?Instructions ?Recorded ?Confirmed ?Last Taken ?Type coenzyme Q10 10 mg capsule (Co 10 mg PO DAILY 12/01/19 10/04/23 Unknown History Q-10) cranberry fruit 400 mg capsule 400 mg PO DAILY 12/01/19 10/04/23 Unknown History losartan 100 1 tablet PO DAILY 12/01/19 10/04/23 Unknown History mg-hydrochlorothiazide 12.5 mg tablet niacin 50 mg tablet 50 mg PO DAILY 12/01/19 10/04/23 Unknown History rivaroxaban 20 mg tablet (Xarelto) 20 mg PO DAILY 12/01/19 10/04/23 Unknown History Adults Multivitamin 1 tab-cap PO DAILY 08/09/20 10/04/23 Unknown History metformin 500 mg tablet,extended 1,000 mg PO BID 08/09/20 10/04/23 Unknown History release 24 hr potassium chloride 20 mEq 20 meq PO DAILY 08/09/20 10/04/23 Unknown History tablet,extended release(part/cryst) (Klor-Con M) furosemide 40 mg tablet 40 mg PO DAILY 02/22/22 10/04/23 Unknown History metoprolol succinate 200 mg 200 mg PO DAILY 10/04/23 10/04/23 Unknown History tablet,extended release 24 hr simvastatin 40 mg tablet mg 04/11/24 Unknown History Allergies Allergy/AdvReac Type Severity Reaction Status Date / Time AILYN Inhibitors AdvReac Mild COUGH Verified 05/05/24 20:42 [facility] Past Medical History Medical History Chronic anticoagulation Xarelto Anxiety Diabetes History of uterine cancer Hyperlipidemia Hypertension A-fib Surgical History Surgical History History of eye surgery History of coronary artery stent placement History of cardiac catheterization H/O: hysterectomy Family History Family History Father , At age 71 circulation problems Peripheral vascular disease Mother , At age 67 of [place] Acute myocardial infarction Social History Social History Smoking status: Never smoker Tobacco type: cigarettes Second hand tobacco smoke exposure: No Alcohol intake: former Substance use: never Living arrangements: with family Occupation/Education: other 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 HEAD: Right frontal hematoma covered with ecchymosis . EYES: Non injected, non icteric ENT: Nares clear, no rhinorrhea or epistaxis. NECK: Supple. Not held in fixed position. CHEST: Speaking in full sentences. No respiratory distress. HEART: Appropriate rate, not bradycardic or tachycardic. ABDOMEN: Soft, nondistended. EXTREMITIES: Normal range of motion. No lower extremity edema. Skin tear overlying right elbow. SKIN: Warm, dry, no rash. NEURO: No focal deficits. Alert and oriented x3. Able to stand and bear weight and maneuver from standing position to stepping on small step to get into stretcher. PSYCH: Normal mood and affect. Course Vital Signs Vital signs: Vital Signs Temperature 98.6 F 05/05/24 20:56 Pulse Rate 93 05/05/24 20:56 Respiratory Rate 15 05/05/24 20:56 Blood Pressure 162/98 H 05/05/24 20:56 Pulse Oximetry 98 05/05/24 20:56 Oxygen Delivery Room Air 05/05/24 20:56 Temperature 97.8 F 05/05/24 21:32 Pulse Rate 79 05/06/24 06:35 Respiratory Rate 14 05/06/24 06:35 Blood Pressure 177/73 H 05/06/24 06:35 Pulse Oximetry 97 05/06/24 06:35 Oxygen Delivery Room Air 05/05/24 20:56 MDM - Fall MDM Narrative Medical decision making narrative: Patient presents after mechanical fall which her heel accidentally caught while going down steps and she slipped down 1 step. No loss of consciousness. She is Xarelto for history of atrial fibrillation. Has a right frontal scalp hematoma as well as a skin tear to her right elbow. In the emergency department she is afebrile with vital signs that show hypertension. Spoke with radiologist given concerns on initial CT scan which is likely artifact though given its appearance just under the surface of the skull where patient has a hematoma and the fact that she is on anticoagulation, Recommend 6 to 8 hour follow up. Discussed this with patient she verifies understanding and is agreeable to this plan. She remains neurologically intact without any deficits. Advised her to notify us if anything changed. Repeat head CT normal. Patient discharged home in stable condition. Patient prescribed acetaminophen for pain. Advised follow-up with primary care physician returning with new or worsening symptoms. Differential Diagnosis Differential diagnosis: Likely other (Intracranial hemorrhage, fracture/dislocation (skull, cervical spine, wrists, elbow)) Imaging Data Radiologist's impression: Impressions Elbow X-Ray 05/05/24 21:55 IMPRESSION: No acute osseous finding in the right elbow. Wrist X-Ray 05/05/24 21:58 IMPRESSION: No acute osseous finding in the left or right wrist. Wrist X-Ray 05/05/24 21:58 IMPRESSION: No acute osseous finding in the left or right wrist. Head CT 05/05/24 22:42 IMPRESSION: Small focus of right frontal extra-axial hemorrhage versus artifact from skull concavity. Consider short-term follow-up noncontrast head CT to evaluate for persistence/change. Results reported telephonically to Dr. Serrano by Dr. Murphy at 10:50 PM on 05/05/2024. Cervical Spine CT 05/05/24 23:14 IMPRESSION: No acute fracture or traumatic malalignment in the cervical spine. Head CT - REPEAT (6 hrs) 05/06/24 - Stat Rad: No evidence of intracranial hemorrhage. The previously described questionable extra-axial hemorrhage is favored to reflect artifact. No acute intracranial abnormality. Right frontal scalp hematoma Read by Kevin radiology: IMPRESSION: 1. Old infarct in the right basal ganglia. 2. Moderate nonspecific cerebral white matter disease, which likely represents chronic small vessel ischemic disease. Discharge Plan Discharge Clinical Impression: Fall (on) (from) other stairs and steps, initial encounter, Abrasion of elbow, right, Acute pain of both wrists, Traumatic hematoma of forehead Patient Disposition: Home, Self-Care Condition: Stable Instructions: Antibiotic Form, Wrist Injury (ED), Fall Prevention for Older Adults (ED), Skin Tear (ED), Hematoma (ED) Additional Instructions: As we discussed, no broken bones. The previously concerning findings on they brain CT were likely artifact as the repeat head CT did not show this or any evidence of intracranial bleeding. You may notice that the bruise gets worse before it gets better. You can apply ice as tolerated. Given that you are on Eliquis, NSAIDs such as ibuprofen/naproxen/Advil/aleve/Motrin are contraindicated for pain. Acetaminophen/Tylenol (maximum 4000 mg per day) is safe to take for pain relief. Follow-up with primary care physician. Return to the emergency department with any new or worsening symptoms. Patient Language: Faroese Prescriptions: New acetaminophen 500 mg capsule 1,000 mg PO Q6H PRN (Reason: pain) Qty: 30 0RF No Action metoprolol succinate 200 mg tablet extended release 24 hr 200 mg PO DAILY coenzyme Q10 [Co Q-10] 10 mg Capsule 10 mg PO DAILY niacin 50 mg Tablet 50 mg PO DAILY cranberry fruit 400 mg Capsule 400 mg PO DAILY losartan-hydrochlorothiazide 100-12.5 mg Tablet 1 tablet PO DAILY Xarelto 20 mg Tablet 20 mg PO DAILY Adults Multivitamin 1 tab-cap PO DAILY potassium chloride [Klor-Con M20] 20 mEq tablet,ER particles/crystals 20 meq PO DAILY metformin 500 mg tablet extended release 24 hr 1,000 mg PO BID furosemide 40 mg tablet 40 mg PO DAILY simvastatin 40 mg tablet Follow-up/Referrals: John,Abhi Coelho MD [Primary Care Provider] - Stand Alone Forms: Work/School Release IP Time of Disposition: 04:54
[2024-05-05 21:32] VITALS: BP 162/98; PULSE 93; RESP 16; TEMP 36.6; O2SAT 100
[2024-05-05] MEDS: ACETAMINOPHEN 500 MG TABLET 1000 MG PO (22:15)
--- OUTSIDE RECORDS SUMMARY | 2024-05-05 22:22 | XMS_ITS | Clinical Summary ---
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,Pulmonary hypertension (HCC),Ischemic cardiomyopathy Take 1 tablet (20 mEq total) by mouth 2 (two) times a day 180 tablet 1 11/27/19 23 Active furosemide (LASIX) 40 mg tabletIndications: Persistent atrial fibrillation (HCC),Acute on chronic combined systolic and diastolic congestive heart failure (HCC),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,Pulmonary hypertension (HCC) Take 1 tablet (40 mg total) by mouth 2 (two) times a day 180 tablet 1 11/27/19 23 Active Additional Information Patient taking differently:40 mg oralDaily, Reported on 03/19/2024 simvastatin (ZOCOR) 40 mg tabletIndications: Persistent atrial fibrillation (HCC),Acute on chronic combined systolic and diastolic congestive heart failure (HCC),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,Pulmonary hypertension (HCC) Take 1 tablet (40 mg total) by mouth nightly 90 tablet 3 02/22/19 24 Active losartan-hydroCHLO ROthiazide (HYZAAR) 100-12.5 mg per tabletIndications: Persistent atrial fibrillation (HCC),Acute on chronic combined systolic and diastolic congestive heart failure (HCC),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,Pulmonary hypertension (HCC) TAKE 1 TABLET DAILY 90 tablet 3 06/24/19 24 Active vit C,L-Pl-edzjr-lutei n-zeaxan 250-90-40-1 mg capsule Take by mouth 2 (two) times a day Active metFORMIN XR (GLUCOPHAGE XR) 500 mg 24 hr tablet TAKE 2 TABLETS TWICE A DAY 360 tablet 3 01/17/20 24 Active metoprolol XL (TOPROL-XL) 200 mg extended release tabletIndications: Persistent atrial fibrillation (HCC),Acute on chronic combined systolic and diastolic congestive heart failure (HCC),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,Pulmonary hypertension (HCC) Take 1 tablet (200 mg total) by mouth daily 90 tablet 3 01/27/20 24 Active rivaroxaban (XARELTO) 20 mg tablet Take 1 tablet (20 mg total) by mouth daily 90 tablet 1 03/05/19 25 Active dapagliflozin propanediol (FARXIGA) 10 mg tablet Take 1 tablet (10 mg total) by mouth director of student financial aid before breakfast 90 tablet 3 03/19/19 25 Active Active Problems Problem Noted Date Diagnosed Date Paroxysmal atrial fibrillation 09/25/2022 Hypersomnia 09/25/2022 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 Does not wish [...] 07/30/2018 Assessment & Plan (03/06/2022 11:19 AM CAMERA OPERATOR): Persistent, rate controlled. Continue metoprolol succinate for [...] anticoagulation Assessment & Plan (12/28/2019 8:06 AM CAMERA OPERATOR): Rate controlled. Continue Toprol and anticoagulation Assessment & Plan (03/03/2019 3:02 PM CAMERA OPERATOR): Rates controlled. Continue Toprol 100. Assessment & [...] artery disease of n ative artery of upper [place] heart with stable angina pectoris 07/30/2018 Assessment & Plan (03/06/2022 11:18 AM CAMERA OPERATOR): Recent stress test with low risk findings. [...] 20 Assessment & Plan (12/28/2019 8:05 AM CAMERA OPERATOR): Recent GFR greater than 50. Continue Xarelto 20 mg daily Assessment & Plan (03/03/2019 3:02 PM CAMERA OPERATOR): Recent GFR greater than 50. Continue Xarelto [...] Tylenol. Assessment & Plan (12/28/2019 8:12 AM CAMERA OPERATOR): Controlled. With repeat repeat blood pressure 135/84 Assessment & Plan (03/03/2019 3:02 PM CAMERA OPERATOR): Repeat blood pressure 115/75. Continue current medications Assessment & Plan (10/02/2018 4:19 PM CDT): Continue losartan DM2 (diabetes mellitus, type 2) 12/07/2016 Hyperlipidemia 12/07/2016 Assessment & Plan (12/28/2019 8:12 AM CAMERA OPERATOR): Continue simvastatin Resolved Problems Problem Noted Date Diagnosed Date Resolved Date Syncope and collapse 05/24/2022 025 Morbid (severe) obesity due to excess calories 03/28/2022 03/19/2024 Type 2 diabetes mellitus with hyperglycemia 09/21/2021 03/19/2024 Acute on chronic combined sy stolic and diastolic congestive heart failure 03/28/202103/19 Assessment & Plan (03/06/2022 11:18 AM CAMERA OPERATOR): Clinically euvolemic. Continue furosemide 40 mg b.i.d.. [...] loss Assessment & Plan (12/28/2019 8:05 AM CAMERA OPERATOR): Encouraged dieting and weight loss Assessment & Plan (03/03/2019 3:02 PM CAMERA OPERATOR): Encouraged dieting and weight loss Assessment & Plan (10/02/2018 4:28 PM CDT): Encouraged dieting Assessment & Plan (07/30/2018 12:00 PM CDT): Encouraged dieting and weight loss Other specified anxiety disorders 03/27/2018 03/19/2024 Encounters Date Type Department Care Team Description 03/19/2024 8:15 AM CAMERA OPERATOR Office Visit [facility] at [address] [place] [phone] Abhi Lopez MD Type 2 diabetes mellitus without complication, without long-term current use of insulin (HCC) (Primary Dx); 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; Primary hypertension; Mixed hyperlipidemia; Chronic right-sided low back pain with right-sided sciatica; Chronic systolic congestive heart failure (HCC) 03/19/2024 Documentation [facility] at [address] [place] [address] Abhi Lopez MD Med Refill 03/04/2024 Telephone [facility] at [address] [place] [address] Abhi Lopez MD Med Refill 02/14/2024 Telephone [facility] [address] [place] [address] [address] [place] [address] Earlene Chirinos MD Med Refill from Last 3 Months Immunizations Immunization Administration Dates Next Due COVID-19 mRNA ([employer]) 0.3 m L (30 mcg) vaccine (12 years and up) 10/24/2023 Influenza, Quad, Adjuvantate d, Intramuscular 01/11/2023,11/13/2021,11/22/2020,10/20 Influenza, Quadrivalent, Hig h Dose, Preservative Free, Intrr 01/11/2023,11/13/2021,11/22/2020 Influenza, Trivalent, High D ose, Split, Preservative Free, Intramuscular 10/24/2023,12/09/2018,11/03/2017 Influenza, Trivalent, IM (MDV) 12/07/2016,2014,11/02/2013 Influenza, Trivalent, Preser vative Free, Intramuscular 12/19/2015 Influenza, Unspecified 11/11/2021 Moderna Sars-cov-2 Bivalent Vaccine 50 Mcg/0.5 mL (12+ YRS)-Blue/Huose 11/13/2021 Pfizer SARS-CoV-2 Monovalent Vaccination (12+ Yrs) [...] on file Legal Sex Female 2:57 AM CAMERA OPERATOR Gender Identity Not on file Sexual Orientation Straight 12/27/2019 12 :40 PM CAMERA OPERATOR Obstetrics History Para Term AB IAB SAB Ectopic Multiple Livin g Live Births 2 2 2 Date Outcome GA Total Labor Labor/2nd/3rd Weight Sex Type Anes PTL Solange A1 A5 Name Clin Term Term Last Filed Vital Signs Vital Sign Reading Time Taken Comments Blood Pressure 148/88 03/19/2024 9:09 AM CAMERA OPERATOR Pulse 86 03/19/2024 8:12 AM CAMERA OPERATOR Temperature 36.6 C (97.8 F) 03/19/2024 8:12 AM CAMERA OPERATOR Respiratory Rate 18 10/11/2023 11:20 AM CDT Oxygen Saturation 95% 03/19/2024 8:12 AM CAMERA OPERATOR Inhaled Oxygen Concentration - - Weight 91.7 kg (202 lb 1.6 oz) 03/19/2024 8:12 A M CAMERA OPERATOR Height 157.5 cm (5' 2 ) 03/19/2024 8:12 AM CAMERA OPERATOR Body Mass Index 36.96 03/19/2024 8:12 AM CAMERA OPERATOR Plan of Treatment Health Maintenance Due Date [...] CDT Post-menopausal EGFR Routine 03/26/2023 10:32 AM CAMERA OPERATOR Type 2 diabetes mellitus without complication, without long-term current use of insulin (HCC) HEMOGLOBIN A1C Routine 03/26/2023 10:32 AM CAMERA OPERATOR Type 2 diabetes mellitus without complication, without long-term current use of insulin (HCC) LIPID PANEL Routine 03/26/2023 10:32 AM CAMERA OPERATOR Type 2 diabetes mellitus without complication, without long-term current use of insulin (HCC) HM DIABETES EYE EXAM Routine 02/20/2023 STOOL DNA COLOGUARD Routine 04/13/2022 10:45 AM CAMERA OPERATOR Colon cancer screening COLONOSCOPY Routine 10/13/2011 from [...] age 40, based on guidelines of the [employer] (ACR Practice Parameter for the Performance of Screening and Diagnostic Mammography) and [place] Gynec[employer]. For women [...] LAB URINE ORDERABLES Final Re sult [facility] [address] [facility] Department [place] [address] * Dexa Axial Skeleton Bone Density 1 [...] Patient takes vitamin-D. 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 TW: TW Report ID: [id number] Reading Location: [id number] Procedure Note Venita Pugh MD - 09/26/2023 EXAM DESCRIPTION: DEXA AXIAL SKELETON BONE DENSITY 1 OR MORE SITES REASON FOR STUDY: 72 y/o year old F with given history of: Post menopausal status. History prior fracture. 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 TW: TW Report ID: [id number] Reading Location: [place] [address] us Abhi Lopez MD IMG DXA PROCEDURES Final Resu lt * eGFR (03/26/2023 10:32 AM CAMERA OPERATOR) eGFR 92 mL/min/1. 73 m2 [facility] TATUM [...] reviewed 2020. Blood 03/26/2023 10:3 2 AM CAMERA OPERATOR 03/26/2023 11:42 AM CAMERA OPERATOR Abhi Lopez MD LAB BLOOD ORDERABLES Final Re sul Performing Organization Address [facility] de Phone Number [address] [place] [address] * (ABNORMAL) Hemoglobin A1c (03/26/2023 10:32 AM CAMERA OPERATOR) Hgb A1C 8.1(H) 4.0 - 5.6 % [facility] Estimated Average Glucose 186 mg/dL [facility] Comment: The ADA recommends reporting an estimated Average Glucose (eAG) with all Hemoglobin A1c results using the equation derived from a study of 507 normal and diabetic adults. Minority populations were underrepresented and children were not included. (Diabetes Care 31:5752-6999, 2008). The eAG is not equivalent to a fasting glucose. Blood 03/26/2023 10:3 2 AM CAMERA OPERATOR 03/26/2023 11:42 AM CAMERA OPERATOR Abhi Lopez MD LAB BLOOD ORDERABLES Final Re sult Performing Organization Address [facility] Co de Phone Number [address] [address] * (ABNORMAL) Lipid panel (03/26/2023 10:32 AM CAMERA OPERATOR) Cholesterol 135 30 - 199 mg/dL [facility] [...] last revised on 2017. Chol/HDL ratio 3 [facility] Blood 03/26/2023 10:3 2 AM CAMERA OPERATOR 03/26/2023 11:42 AM CAMERA OPERATOR Narrative [facility] - 03/26/2023 12:13 PM CAMERA OPERATOR Has the patient been fasting for 8 hours or more?->No Abhi Lopez MD LAB BLOOD ORDERABLES Final Re sult [facility] [address] [facility] [place] [address] * DIABETES EYE EXAM (02/20/2023) Historical Provider HEALTH MAINTENANCE Final Result * Stool DNA - Cologuard (04/13/2022 10:45 AM CAMERA OPERATOR) Stool DNA - Cologuard Negative Negative [employer] (CLIA #:[id number]) Comment: NEGATIVE TEST RESULT. A negative Cologuard [...] colonoscopy. (Abner Sow, N Engl J Med 2014;370(14):2115-3296) The normal value (reference range) for this assay is negative. COLOGUARD RE-SCREENING RECOMMENDATION: Periodic colorectal cancer screening is an important part of preventive healthcare for asymptomatic individuals at average risk for colorectal cancer. Following a negative Cologuard result, the [place] Society and U.S. Multi-Society Task Force screening guidelines recommend a Cologuard re-screening interval of 3 years. References: [place] Guideline for Colorectal Cancer Screening: https://www.cancer.org/cancer/pqhzx-srygmr-jpwdiz/qelcichen-vgqgkerag-iwyrarl/ac s-rec ommendations.html.; Dre DK, Janene CHRISTINA, Amanda PetersK, Colorectal Cancer Screening: Recommendations for Physicians and Patients from the U.S. Multi-Society Task Force on Colorectal Cancer Screening , Am J Gastroenterology 2017; 112:7732-8231. TEST DESCRIPTION: Composite algorithmic analysis of stool [...] (Abner Narayan al, N Engl J Med 2014;370(14):3087-3368.) Cologuard may produce a false negative or false positive result (no colorectal cancer or precancerous polyp present at colonoscopy follow up). A negative Cologuard test result does not guarantee the absence of CRC or advanced adenoma (pre-cancer). The current Cologuard screening interval is every 3 years. ([employer] Society and U.S. Multi-Society Task Force). Cologuard performance data in a 10,000 patient pivotal study using colonoscopy as the reference method can be accessed at the following location: [email or web address].[email or web address].it/results. Additional description of the Cologuard test process, warnings and precautions can be found at [email or web address]. Stool 04/13/2022 10:4 5 AM CAMERA OPERATOR 04/14/2022 12:06 PM CAMERA OPERATOR Abhi Lopez MD LAB BODY FLUIDS AND STOOLS OR DERABLES Final Result [facility] (CLIA #:[id number]) [place] [address] [place] [address] * Colonoscopy (10/13/2011) Anatomical Region Laterality Modality Other Historical Provider ENDOSCOPY PROCEDURES Brigitte l Result from Last 3 Months or Most Recently Relevant to Health Maintenance Insurance MEDICARE [facility]ROAD [facility]AD [facility] MEDICARE RAILROAD [facility] MEDICARE SUPPLEMENT Care Teams Fitter / Welder Relationship Specialty Start Date End Date Abhi Lopez MD PCP - General 02/10/17 Collin Longo MD Gas Engineer Cardiology 09/19/18
--- OUTSIDE RECORDS SUMMARY | 2024-05-05 22:22 | XMS_ITS | Encounter Summary ---
Author Organization [facility] [place] Facility Care Team Providers Care Pile Driving Nozzleman Name Role Phone Abhi Lopez MD Primary Care Provider [phone] Collin Longo MD Unavailable [phone] Encounter Details Date Type Department Care Team (Latest Contact Info) Description 04/22/2015 Orders Only [facility] CLINCON[facility] ProviderZahira MD [address] [place] [address] Social History Tobacco Use Types Packs/Day Years Used Date Smoking Tobacco: Never Assessed Comments Unknown Sex and Gender Information Value Date Recorded Sex Assigned at Not on file Legal Sex Female 2:57 AM STRUCTURAL MILL SUPERVISOR Gender Identity Not on file Sexual Orientation Straight 12/27/2019 12 :40 PM STRUCTURAL MILL SUPERVISOR documented as of this encounter Plan of Treatment Not on file documented as of this encounter Procedures Procedure Name Priority Date/Time Associated Diagnosis Comments SCAN - LABS 04/22/2015 12:00 AM STRUCTURAL MILL SUPERVISOR documented in this encounter Results * SCAN - LABS (04/22/2015 12:00 AM STRUCTURAL MILL SUPERVISOR) Narrative 04/22/2015 12:00 AM STRUCTURAL MILL SUPERVISOR Ordered by an unspecified provider. Historical Provider Final Res ult documented in this encounter Visit Diagnoses Not on filedocumented in this encounter Care Teams Pile Driving Nozzleman Relationship Specialty Start Date End Date Abhi Lopez MD PCP - General 02/10/17 Collin Longo MD Masonry Contractor Administrator Cardiology 09/19/18 documented as of this encounter
--- OUTSIDE RECORDS SUMMARY | 2024-05-05 22:22 | XMS_ITS | Encounter Summary ---
Author Organization [facility] Facility Care Team Providers Care Manufacturing Engineer Assembly Name Role Phone Abhi Lopez MD Primary Care Provider [phone] Collin Longo MD Unavailable [phone] Encounter Details Date Type Department Care Team (Latest Contact Info) Description 12/23/2006 Orders Only [facility] CLINCONV ProviderZahira MD [address] [place] [address] Social History Tobacco Use Types Packs/Day Years Used Date Smoking Tobacco: Never Assessed Comments Unknown Sex and Gender Information Value Date Recorded Sex Assigned at Not on file Legal Sex Female 2:57 AM CAKE BATTER MIXER Gender Identity Not on file Sexual Orientation Straight 12/27/2019 12 :40 PM CAKE BATTER MIXER documented as of this encounter Plan of [...] on filedocumented in this encounter Care Teams Manufacturing Engineer Assembly Relationship Specialty Start Date End Date Abhi Lopez MD PCP - General 02/10/17 Collin Longo MD Blender / Cook Cardiology 09/19/18 documented as of this encounter
--- OUTSIDE RECORDS SUMMARY | 2024-05-05 22:22 | XMS_ITS | Encounter Summary ---
Author Organization [facility] Facility Care Team Providers Care Solar Mechanical Engineer Name Role Phone Abhi Lopez MD Primary Care Provider [phone] Collin Longo MD Unavailable [phone] Encounter Details Date Type Department Care Team (Latest Contact Info) Description 09/23/2017 Orders Only [facility] CLINCONV ProviderZahira MD [address] [place] [address] Social History Tobacco Use Types Packs/Day Years Used Date Smoking Tobacco: Never Assessed Comments Unknown Sex and Gender Information Value Date Recorded Sex Assigned at Not on file Legal Sex Female 2:57 AM VOCATIONAL SERVICES SPECIALIST Gender Identity Not on file Sexual Orientation Straight 12/27/2019 12 :40 PM VOCATIONAL SERVICES SPECIALIST documented as of this encounter Plan of [...] on filedocumented in this encounter Care Teams Solar Mechanical Engineer Relationship Specialty Start Date End Date Abhi Lopez MD PCP - General 02/10/17 Collin Longo MD Impregnator And Drier Helper Cardiology 09/19/18 documented as of this encounter
--- OUTSIDE RECORDS SUMMARY | 2024-05-05 22:22 | XMS_ITS | Encounter Summary ---
Author Organization [facility] Facility Care Team Providers Care Middle School Pe Teacher Name Role Phone Abhi Lopez MD Primary Care Provider [phone] Collin Longo MD Unavailable [phone] Encounter Details Date Type Department Care Team (Latest Contact Info) Description 12/08/2010 Orders Only [facility] CLINCONV ProviderZahira MD [address] [place] [address] Social History Tobacco Use Types Packs/Day Years Used Date Smoking Tobacco: Never Assessed Comments Unknown Sex and Gender Information Value Date Recorded Sex Assigned at Not on file Legal Sex Female 2:57 AM MACHINE FASTENER Gender Identity Not on file Sexual Orientation Straight 12/27/2019 12 :40 PM MACHINE FASTENER documented as of this encounter Plan of [...] on filedocumented in this encounter Care Teams Middle School Pe Teacher Relationship Specialty Start Date End Date Abhi Lopez MD PCP - General 02/10/17 Collin Longo MD Garage Door Installer Cardiology 09/19/18 documented as of this encounter
--- OUTSIDE RECORDS SUMMARY | 2024-05-05 22:22 | XMS_ITS | Encounter Summary ---
Author Organization [facility] Facility Care Team Providers Care Administrative Dietitian Name Role Phone Abhi Lopez MD Primary Care Provider [phone] Collin Longo MD Unavailable [phone] Encounter Details Date Type Department Care Team (Latest Contact Info) Description 12/30/2002 Orders Only [facility] CLINCONV ProviderZahira MD [address] [place] [address] Social History Tobacco Use Types Packs/Day Years Used Date Smoking Tobacco: Never Assessed Comments Unknown Sex and Gender Information Value Date Recorded Sex Assigned at Not on file Legal Sex Female 2:57 AM ROBOT DESIGNER Gender Identity Not on file Sexual Orientation Straight 12/27/2019 12 :40 PM ROBOT DESIGNER documented as of this encounter Plan [...] on filedocumented in this encounter Care Teams Administrative Dietitian Relationship Specialty Start Date End Date Abhi Lopez MD PCP - General 02/10/17 Collin Longo MD Swatch Clerk Cardiology 09/19/18 documented as of this encounter
--- OUTSIDE RECORDS SUMMARY | 2024-05-05 22:22 | XMS_ITS | Referral Summary ---
Author Organization [facility] Address [address] [place] [address] Care Team Providers Care Shaving Machine Operator Name Role Phone Abhi Lopez MD Primary Care Provider [phone] Collin Longo MD Unavailable [phone] Encounters Date Type Department Care Team Description 03/19/2024 Documentation [facility] at [address] [place] [phone] Abhi Lopez MD Med Refill 03/19/2024 8:15 AM SHOT DROPPER Office Visit [facility] at [address] [place] [address] Abhi Lopez MD Type 2 diabetes mellitus without complication, without long-term current use of insulin (HCC) (Primary Dx); Coronary artery disease of [place] artery of [place] heart with stable angina pectoris; Primary hypertension; Mixed hyperlipidemia; Chronic right-sided low back pain with right-sided sciatica; Chronic systolic congestive heart failure (HCC) 03/04/2024 Telephone [facility] at [address] [place] [address] Abhi Lopez MD Med Refill 02/14/2024 Telephone [facility] Cardiology [address] [place] [address] [place] [phone] Earlene Chirinos MD Med Refill from Last 3 Months Allergies Active Allergy Reactions Criticality Noted Date Comments Elan Inhibitors Unknown 06/25/2018 Medications ubidecarenone (COENZYME Q10) 100 mg tablet Take by mouth Active omega 7-swv-wnw-fish oil 1,000 mg (120 mg-180 mg) capsule [...] congestive heart failure (HCC),Coronary artery disease of [place] artery of [place] heart with stable angina pectoris,Pulmonary hypertension (HCC),Ischemic cardiomyopathy Take 1 tablet (20 mEq total) by mouth 2 (two) times a day 180 tablet 1 11/27/19 23 Active furosemide (LASIX) 40 mg tabletIndications: Persistent atrial fibrillation (HCC),Acute on chronic combined systolic and diastolic congestive heart failure (HCC),Coronary artery disease of [place] artery of [place] heart with stable angina pectoris,Pulmonary hypertension (HCC) Take 1 tablet (40 mg total) by mouth 2 (two) times a day 180 tablet 1 11/27/19 23 Active Additional Information Patient taking differently:40 mg oralDaily, Reported on 03/19/2024 simvastatin (ZOCOR) 40 mg tabletIndications: Persistent atrial fibrillation (HCC),Acute on chronic combined systolic and diastolic congestive heart failure (HCC),Coronary artery disease of [place] artery of [place] heart with stable angina pectoris,Pulmonary hypertension (HCC) Take 1 tablet (40 mg total) by mouth nightly 90 tablet 3 02/22/19 24 Active losartan-hydroCHLO ROthiazide (HYZAAR) 100-12.5 mg per tabletIndications: Persistent atrial fibrillation (HCC),Acute on chronic combined systolic and diastolic congestive heart failure (HCC),Coronary artery disease of [place] artery of [place] heart with stable angina pectoris,Pulmonary hypertension (HCC) TAKE 1 TABLET DAILY 90 tablet 3 06/24/19 24 Active vit C,G-Uo-qdmag-lutei n-zeaxan 250-90-40-1 mg capsule Take by mouth 2 (two) times a day Active metFORMIN XR (GLUCOPHAGE XR) 500 mg 24 hr tablet TAKE 2 TABLETS TWICE A DAY 360 tablet 3 01/17/20 24 Active metoprolol XL (TOPROL-XL) 200 mg extended release tabletIndications: Persistent atrial fibrillation (HCC),Acute on chronic combined systolic and diastolic congestive heart failure (HCC),Coronary artery disease of [place] artery of [place] heart with stable angina pectoris,Pulmonary hypertension (HCC) Take 1 tablet (200 mg total) by mouth daily 90 tablet 3 01/27/20 24 Active rivaroxaban (XARELTO) 20 mg tablet Take 1 tablet (20 mg total) by mouth daily 90 tablet 1 03/05/19 25 Active dapagliflozin propanediol (FARXIGA) 10 mg tablet Take 1 tablet (10 mg total) by mouth placement specialist before breakfast 90 tablet 3 03/19/19 25 Active Active Problems Problem Noted Date Diagnosed Date Paroxysmal atrial fibrillation 09/25/2022 Hypersomnia 09/25/2022 Delayed sleep phase syndrome 09/25/2022 BMI 38.0-38.9,adult 09/25/2022 Ischemic cardiomyopathy 11/22/2020 Pulmonary hypertension 11/22/2020 Assessment & Plan (03/06/2022 11:18 AM SHOT DROPPER): Severe on last echocardiogram. Does not wish [...] 07/30/2018 Assessment & Plan (03/06/2022 11:19 AM SHOT DROPPER): Persistent, rate controlled. Continue metoprolol succinate for [...] anticoagulation Assessment & Plan (12/28/2019 8:06 AM SHOT DROPPER): Rate controlled. Continue Toprol and anticoagulation Assessment & Plan (03/03/2019 3:02 PM SHOT DROPPER): Rates controlled. Continue Toprol 100. Assessment & [...] artery disease of n ative artery of [place] heart with stable angina pectoris 07/30/2018 Assessment & Plan (03/06/2022 11:18 AM SHOT DROPPER): Recent stress test with low risk findings. [...] 20 Assessment & Plan (12/28/2019 8:05 AM SHOT DROPPER): Recent GFR greater than 50. Continue Xarelto 20 mg daily Assessment & Plan (03/03/2019 3:02 PM SHOT DROPPER): Recent GFR greater than 50. Continue Xarelto [...] Tylenol. Assessment & Plan (12/28/2019 8:12 AM SHOT DROPPER): Controlled. With repeat repeat blood pressure 135/84 Assessment & Plan (03/03/2019 3:02 PM SHOT DROPPER): Repeat blood pressure 115/75. Continue current medications Assessment & Plan (10/02/2018 4:19 PM CDT): Continue losartan DM2 (diabetes mellitus, type 2) 12/07/2016 Hyperlipidemia 12/07/2016 Assessment & Plan (12/28/2019 8:12 AM SHOT DROPPER): Continue simvastatin Resolved Problems Problem Noted Date Diagnosed Date Resolved Date Syncope and collapse 05/24/2022 025 Morbid (severe) obesity due to excess calories 03/28/2022 03/19/2024 Type 2 diabetes mellitus with hyperglycemia 09/21/2021 03/19/2024 Acute on chronic combined sy stolic and diastolic congestive heart failure 03/28/202103/19 Assessment & Plan (03/06/2022 11:18 AM SHOT DROPPER): Clinically euvolemic. Continue furosemide 40 mg b.i.d.. [...] loss Assessment & Plan (12/28/2019 8:05 AM SHOT DROPPER): Encouraged dieting and weight loss Assessment & Plan (03/03/2019 3:02 PM SHOT DROPPER): Encouraged dieting and weight loss Assessment & Plan (10/02/2018 4:28 PM CDT): Encouraged dieting Assessment & Plan (07/30/2018 12:00 PM CDT): Encouraged dieting and weight loss Other specified anxiety disorders 03/27/2018 03/19/2024 Immunizations Immunization Administration Dates Next Due COVID-19 mRNA (Foodoro) 0.3 m L (30 mcg) vaccine (12 [...] on file Legal Sex Female 2:57 AM SHOT DROPPER Gender Identity Not on file Sexual Orientation Straight 12/27/2019 12 :40 PM SHOT DROPPER Last Filed Vital Signs Vital Sign Reading Time Taken Comments Blood Pressure 148/88 03/19/2024 9:09 AM SHOT DROPPER Pulse 86 03/19/2024 8:12 AM SHOT DROPPER Temperature 36.6 C (97.8 F) 03/19/2024 8:12 AM SHOT DROPPER Respiratory Rate 18 10/11/2023 11:20 AM CDT Oxygen Saturation 95% 03/19/2024 8:12 AM SHOT DROPPER Inhaled Oxygen Concentration - - Weight 91.7 kg (202 lb 1.6 oz) 03/19/2024 8:12 A M SHOT DROPPER Height 157.5 cm (5' 2 ) 03/19/2024 8:12 AM SHOT DROPPER Body Mass Index 36.96 03/19/2024 8:12 AM SHOT DROPPER Plan of Treatment Not on file Procedures [...] CDT Post-menopausal EGFR Routine 03/26/2023 10:32 AM SHOT DROPPER Type 2 diabetes mellitus without complication, without long-term current use of insulin (HCC) HEMOGLOBIN A1C Routine 03/26/2023 10:32 AM SHOT DROPPER Type 2 diabetes mellitus without complication, without long-term current use of insulin (HCC) LIPID PANEL Routine 03/26/2023 10:32 AM SHOT DROPPER Type 2 diabetes mellitus without complication, without long-term current use of insulin (HCC) HM DIABETES EYE EXAM Routine 02/20/2023 STOOL DNA COLOGUARD Routine 04/13/2022 10:45 AM SHOT DROPPER Colon cancer screening COLONOSCOPY Routine 10/13/2011 from [...] age 40, based on guidelines of the [place] [employer] (ACR Practice Parameter for the Performance of Screening and Diagnostic Mammography) and [place] [employer]. For women [...] last revised 2018. Creatinine Ur 60.9 mg/dL [facility] Comment: Interpretive Data No reference range established. Current interpretive data was last revised 2018. Albumin Creatinine Ratio, Ur 598(H) 1 - 29 mg/g [facility] Urine 10/01/2023 10:3 7 AM CDT 10/01/2023 11:32 AM CDT us Abhi Lopez MD LAB URINE ORDERABLES Final Re sult [facility] [id number] [facility] Department [place] [address] * Dexa Axial Skeleton Bone [...] Patient takes vitamin-D. History of endometrial carcinoma Crossbow Maker/Model: [employer] A (S/N [id number]) CLINICAL INFORMATION: Current height: 62 inches Maximum [...] Venita Pugh M.D. TW: TW Report ID: [id number] Reading Location: [id number] Procedure Note Venita Pugh MD - 09/26/2023 EXAM DESCRIPTION: DEXA AXIAL SKELETON BONE DENSITY 1 OR MORE SITES REASON FOR STUDY: 72 y/o year old F with given history of: Post menopausal status. History prior fracture. Patient takes vitamin-D.History of endometrial carcinoma Crossbow Maker/Model: Hologic Horizon A (S/N [id number]) CLINICAL INFORMATION: Current height: 62 inches Maximum [...] Venita Pugh M.D. TW: TW Report ID: [id number] Reading Location: [id number] us Abhi Lopez MD IMG DXA PROCEDURES Final Resu lt * eGFR (03/26/2023 10:32 AM SHOT DROPPER) eGFR 92 mL/min/1. 73 m2 [facility] TATUM [...] reviewed 2020. Blood 03/26/2023 10:3 2 AM SHOT DROPPER 03/26/2023 11:42 AM SHOT DROPPER Abhi Lopez MD LAB BLOOD ORDERABLES Final Re sult [facility] Organization Address City/State/ZIP Co de Phone Number [facility] [id number] [facility] [facility] Department of Laboratories [place], [place] [phone] * (ABNORMAL) Hemoglobin A1c (03/26/2023 10:32 AM SHOT DROPPER) Hgb A1C 8.1(H) 4.0 - 5.6 % [facility] Estimated Average Glucose 186 mg/dL [facility] Comment: The ADA recommends reporting an estimated Average Glucose (eAG) with all Hemoglobin A1c results using the equation derived from a study of 507 normal and diabetic adults. Minority populations were underrepresented and children were not included. (Diabetes Care 31:0895-1444, 2008). The eAG is not equivalent to a fasting glucose. Blood 03/26/2023 10:3 2 AM SHOT DROPPER 03/26/2023 11:42 AM SHOT DROPPER us Abhi Lopez MD LAB BLOOD ORDERABLES Final Re sult [facility] [address] [facility] Department [place] [address] * (ABNORMAL) Lipid panel (03/26/2023 10:32 AM SHOT DROPPER) Cholesterol 135 30 - 199 mg/dL [facility] [...] 3 [facility] Blood 03/26/2023 10:3 2 AM SHOT DROPPER 03/26/2023 11:42 AM SHOT DROPPER Narrative [facility] - 03/26/2023 12:13 PM SHOT DROPPER Has the patient been fasting for 8 hours or more?->No us Abhi Lopez MD LAB BLOOD ORDERABLES Final Re sult [facility] [address] [facility] [place] [address] * DIABETES EYE EXAM (02/20/2023) us Historical Provider [facility] Final Result * Stool DNA - Cologuard (04/13/2022 10:45 AM SHOT DROPPER) Stool DNA - Cologuard Negative Negative Green A (CLIA #:[id number]) Comment: NEGATIVE TEST RESULT. A negative Cologuard [...] He et al, N Engl J Med 2014;370(14):8383-0289) The normal value (reference range) for this assay is negative. COLOGUARD RE-SCREENING RECOMMENDATION: Periodic colorectal cancer screening is an important part of preventive healthcare for asymptomatic individuals at average risk for colorectal cancer. Following a negative Cologuard result, the [place] [employer] and U.S. Multi-Society Task Force screening guidelines recommend a Cologuard re-screening interval of 3 years. References: [place] [employer] Guideline for Colorectal Cancer Screening: https://www.cancer.org/cancer/wzsdi-myevtl-kknvex/eaigsxlxm-fglhbszka-ccdbvht/ac s-rec ommendations.html.; Dre SIMMONS, Janene CR, Amanda PetersK, Colorectal Cancer Screening: Recommendations for Physicians and Patients from the U.S. Multi-Society Task Force on Colorectal Cancer Screening , Am J Gastroenterology 2017; 112:3908-2919. TEST DESCRIPTION: Composite algorithmic analysis of stool [...] Schmidt. et al, N Engl J Med 2014;370(14):6427-3139.) Cologuard may produce a false negative or false positive result (no colorectal cancer or precancerous polyp present at colonoscopy follow up). A negative Cologuard test result does not guarantee the absence of CRC or advanced adenoma (pre-cancer). The current Cologuard screening interval is every 3 years. ([place] [employer] and U.S. Multi-Society Task Force). Cologuard performance data in a 10,000 patient pivotal study using colonoscopy as the reference method can be accessed at the following location: www.1Lay/results. Additional description of the Cologuard test process, warnings and precautions can be found at www.cologuard.com. Stool 04/13/2022 10:4 5 AM SHOT DROPPER 04/14/2022 12:06 PM SHOT DROPPER Abhi Lopez MD LAB BODY FLUIDS AND STOOLS OR DERABLES Final Result [facility] (CLIA #:[id number]) [place] [address] * Colonoscopy (10/13/2011) Anatomical Region Laterality Modality Other Historical Provider ENDOSCOPY PROCEDURES Brigitte l Result from Last 3 Months or Most Recently Relevant to Health Maintenance Insurance [facility] [place] [place] [address] [facility] [place] [address] MEDICARE [address] [facility] MEDICARE SUPPLEMENT Care Teams Shaving Machine Operator Relationship Specialty Start Date End Date Abhi Lopez MD PCP - General 02/10/17 Collin Longo MD Coffee Machine Technician Cardiology 09/19/18
[2024-05-06 00:30] VITALS: BP 168/82; PULSE 74; RESP 16; O2SAT 100
[2024-05-06 02:40] VITALS: BP 153/88; PULSE 86; RESP 14; O2SAT 95
[2024-05-06 06:35] VITALS: BP 177/73; PULSE 79; RESP 14; O2SAT 97
== END 2024-05-06 06:37 | disposition home or self-care (01) ==
PROVIDERS: Emergency Provider Student in an Organized Health Care Education/Training Program; PCP Family Medicine
DX: S50.311A Abrasion of right elbow, initial encounter (principal); M25.532 Pain in left wrist; M25.531 Pain in right wrist; S00.83XA Contusion of other part of head, initial encounter; Z79.01 Long term (current) use of anticoagulants; F41.9 Anxiety disorder, unspecified; E11.9 Type 2 diabetes mellitus without complications; I10 Essential (primary) hypertension; I48.91 Unspecified atrial fibrillation; W10.9XXA Fall (on) (from) unspecified stairs and steps, initial encounter
CPT/HCPCS: 70450; 72125; 73070; 73100; 99284; A9270

== ENCOUNTER 2024-08-07 09:50 | Emergency (ER) | payer MEDICARE, SELFPAY ==
--- NOTE | 2024-08-07 09:51 | ED_ITS ---
HPI - Female Genitourinary General Chief complaint: Urogenital-Female Stated complaint: urinary irritation Time Seen by Provider: 08/07/24 09:50 Source: patient Mode of arrival: ambulatory Limitations: no limitations History of Present Illness HPI Narrative: Brandie is a 73-year-old female patient presenting to the clinic today with complaints possible UTI. She reports she is having some lower back pain with blood in her urine. States 1st noticed this at 9:00 a.m. last night. Denies any fevers, chills, or body aches. Denies any burning with urination. No recent fall or injury. Denies any pain currently. No history of kidney stones or bladder CA. She does take Xarelto for AFib. Has not taken any medications for her symptoms. Related Data Home Medications ?Medication ?Instructions ?Recorded ?Confirmed ?Last Taken ?Type coenzyme Q10 10 mg capsule (Co 10 mg PO DAILY 12/01/19 10/04/23 Unknown History Q-10) cranberry fruit 400 mg capsule 400 mg PO DAILY 12/01/19 10/04/23 Unknown History losartan 100 1 tablet PO DAILY 12/01/19 10/04/23 Unknown History mg-hydrochlorothiazide 12.5 mg tablet niacin 50 mg tablet 50 mg PO DAILY 12/01/19 10/04/23 Unknown History rivaroxaban 20 mg tablet (Xarelto) 20 mg PO DAILY 12/01/19 10/04/23 Unknown History Adults Multivitamin 1 tab-cap PO DAILY 08/09/20 10/04/23 Unknown History metformin 500 mg tablet,extended 1,000 mg PO BID 08/09/20 10/04/23 Unknown History release 24 hr potassium chloride 20 mEq 20 meq PO DAILY 08/09/20 10/04/23 Unknown History tablet,extended release(part/cryst) (Klor-Con M) furosemide 40 mg tablet 40 mg PO DAILY 02/22/22 10/04/23 Unknown History metoprolol succinate 200 mg 200 mg PO DAILY 10/04/23 10/04/23 Unknown History tablet,extended release 24 hr simvastatin 40 mg tablet mg 04/11/24 Unknown History Allergies Allergy/AdvReac Type Severity Reaction Status Date / Time AILYN Inhibitors AdvReac Mild COUGH Verified 08/07/24 09:55 Review of Systems Review of Systems: Pertinent positives per HPI. Patient denies any fever, chills, rash, headache, visual changes, dizziness, cough, runny nose, sore throat, shortness of breath, chest pain, palpitations, nausea, vomiting, diarrhea, constipation, abdominal pain. [facility] Past Medical History Medical History Chronic anticoagulation Xarelto Anxiety Diabetes History of uterine cancer Hyperlipidemia Hypertension A-fib Surgical History Surgical History History of eye surgery History of coronary artery stent placement History of cardiac catheterization H/O: hysterectomy Family History Family History Father , At age 71 circulation problems Peripheral vascular disease Mother , At age 67 of [place] Acute myocardial infarction Social History Social History Smoking status: Never smoker Tobacco type: cigarettes Second hand tobacco smoke exposure: No Alcohol intake: former Substance use: never Living arrangements: with family Occupation/Education: other 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 There is no relevant family history pertinent to the patient complaint. Exam Narrative: General: Well-developed, well nourished, in no apparent distress. Head: Normocephalic, atraumatic. Cardio: Regular rate and rhythm, s1 and s2 normal, no murmur appreciated. Resp: Clear to auscultation bilaterally, no rhonchi, rales, wheezing or rubs. Abdomen: Soft, pliable, bowel sounds present in all quadrants, non-tender to palpation, no organomegly, no CVAT tenderness. Course Course Emergency Course: Portions of this record may have been created with voice recognition software. Level of Care: Express Care Visit Vital Signs Vital signs: Vital Signs Temperature 36.9 C 08/07/24 10:06 Pulse Rate 80 08/07/24 10:06 Respiratory Rate 16 08/07/24 10:06 Blood Pressure 175/103 H 08/07/24 10:06 Pulse Oximetry 100 06/27/25 10:06 Oxygen Delivery Room Air 08/07/24 10:06 Temperature 36.9 C 08/07/24 10:06 Pulse Rate 80 08/07/24 10:06 Respiratory Rate 16 08/07/24 10:06 Blood Pressure 176/109 H 08/07/24 10:07 Pulse Oximetry 100 08/07/24 10:06 Oxygen Delivery Room Air 08/07/24 10:06 Vital signs reviewed MDM - Female Genitourinary MDM Narrative Medical decision making narrative: At the time of visit patient is resting comfortably on the exam table. Patient appears to be nontoxic. Labs: Urinalysis positive for leukocytes, protein, nitrates, blood, and 3+ glucose. We will send urine for culture. Plan: I suspect patient has urinary tract infection. Prescription for flex and was sent to the pharmacy. We will send urine for culture. Discussed keeping a tight control on her blood sugar. If symptoms persist she should follow-up with her primary care doctor or they worsen Go to the emergency room. Supportive measures were discussed with the patient and they voiced understanding discharge instructions and agrees to treatment plan. Return precautions reviewed Differential Diagnosis Differential diagnosis: Likely urinary tract infection, cystitis and other (Pyelonephritis, bladder CA, bleeding due to anticoagulation) Discharge Plan Discharge Clinical Impression: Urinary tract infection Qualifiers: Urinary tract infection type: acute cystitis Hematuria presence: with hematuria Qualified Code(s): N30.01 - Acute cystitis with hematuria Patient Disposition: Home Condition: Stable Instructions: Antibiotic Form, Urinary Tract Infection in Older Adults (ED) Additional Instructions: Urinalysis positive for bacteria, blood, protein, glucose, and nitrates. We will send urine for culture Take cephalexin as prescribed Increase fluids and stay well hydrated Wipe front to back. May use wet wipes. Avoid tub baths If sexually active- pee before and after intercourse. Wear cotton panties Avoid tight clothing up against the genitals Follow up with your PCP in 1 week if symptoms persist. Patient Language: Gib[place] Prescriptions: New cephalexin 500 mg capsule 500 mg PO Q12H 7 Days Qty: 14 0RF No Action metoprolol succinate 200 mg tablet extended release 24 hr 200 mg PO DAILY coenzyme Q10 [Co Q-10] 10 mg Capsule 10 mg PO DAILY niacin 50 mg Tablet 50 mg PO DAILY cranberry fruit 400 mg Capsule 400 mg PO DAILY losartan-hydrochlorothiazide 100-12.5 mg Tablet 1 tablet PO DAILY Xarelto 20 mg Tablet 20 mg PO DAILY Adults Multivitamin 1 tab-cap PO DAILY potassium chloride [Klor-Con M20] 20 mEq tablet,ER particles/crystals 20 meq PO DAILY metformin 500 mg tablet extended release 24 hr 1,000 mg PO BID furosemide 40 mg tablet 40 mg PO DAILY simvastatin 40 mg tablet acetaminophen 500 mg capsule 1,000 mg PO Q6H PRN (Reason: pain) Qty: 30 0RF Follow-up/Referrals: John,Abhi Coelho MD [Primary Care Provider] - Time of Disposition: 10:22 Quality NIHSS Nursing Documentation ED NIHSS nursing documentation: reviewed/agree
[2024-08-07 10:06] VITALS: BP 175/103; PULSE 80; RESP 16; TEMP 36.9; O2SAT 100
[2024-08-07 10:07] VITALS: BP 176/109
[2024-08-07 10:18] LABS: EDUAAPPEAR Cloudy; EDUABILI Negative (Negative); EDUABLOOD 3+ (Negative); EDUACOLOR1 Amber; EDUAGLUCOSE 3+ (Negative); EDUAKETONE Negative (Negative); EDUALEUKO Trace (Negative); EDUANITRATE Positive (Negative); EDUAPROTEIN 2+ (Negative); EDUASPGRAVITY 1.015
== END 2024-08-07 10:34 | disposition home or self-care (01) ==
PROVIDERS: Emergency Provider Nurse Practitioner Family; PCP Family Medicine
DX: N30.01 Acute cystitis with hematuria (principal); I48.91 Unspecified atrial fibrillation; Z79.01 Long term (current) use of anticoagulants; E11.9 Type 2 diabetes mellitus without complications; E78.5 Hyperlipidemia, unspecified; I10 Essential (primary) hypertension; Z85.42 Personal history of malignant neoplasm of other parts of uterus
CPT/HCPCS: 81003; 87077; 87086; 87186; 99213; G0463

== ENCOUNTER 2025-01-21 11:30 | Emergency (ER) | payer MEDICARE, SELFPAY ==
--- NOTE | 2025-01-21 11:38 | ED_ITS ---
HPI - Female Genitourinary General Chief complaint: Urogenital-Female Stated complaint: UTI Time Seen by Provider: 01/21/25 11:30 Source: patient Mode of arrival: ambulatory Limitations: no limitations History of Present Illness HPI Narrative: Patient is a 74-year-old female who presents with burning with urination, urgency, frequency, lower abdominal cramping since yesterday. Denies any fever, chills, nausea, vomiting, diarrhea, low back pain. Did take azo yesterday MD elicited complaint: dysuria Related Data Home Medications ?Medication ?Instructions ?Recorded ?Confirmed ?Last Taken ?Type coenzyme Q10 10 mg capsule (Co 10 mg PO DAILY 12/01/19 10/04/23 Unknown History Q-10) cranberry fruit 400 mg capsule 400 mg PO DAILY 0 10/04/23 Unknown History losartan 100 1 tablet PO DAILY 12/01/19 0 10/04/23 Unknown History mg-hydrochlorothiazide 12.5 mg tablet niacin 50 mg tablet 50 mg PO DAILY 12/01/1909/12 Unknown History rivaroxaban 20 mg tablet (Xarelto) 20 mg PO DAILY 11/1210/04/23 Unknown History Adults Multivitamin 1 tab-cap PO DAILY 08/09/20 10/04/23 Unknown History metformin 500 mg tablet,extended 1,000 mg PO BID 08/0910/04/23 Unknown History release 24 hr potassium chloride 20 mEq 20 meq PO DAILY 08/09/20 Unknown History tablet,extended release(part/cryst) (Klor-Con M) furosemide 40 mg tablet 40 mg PO DAILY 02/22/2209/12 Unknown History metoprolol succinate 200 mg 200 mg PO DAILY 10/04/23 0 10/04/23 Unknown History tablet,extended release 24 hr simvastatin 40 mg tablet mg 04/11/24 Unknown History Allergies Allergy/AdvReac Type Severity Reaction Status Date / Time AILYN Inhibitors AdvReac Mild COUGH Verified 01/21/25 11:33 Review of Systems Review of Systems: All systems reviewed & are unremarkable except as noted in HPI and below Constitutional: Constitutional: Denies chills, Denies fever(s), Denies headache(s), Denies malaise and Denies weakness Eyes: Eyes: Denies change in vision, Denies eye discharge and Denies irritation ENT: Denies otalgia, Denies headache(s), Denies nasal congestion, Denies nasal discharge, Denies sinus pain and Denies sore throat Cardiovascular: Cardiovascular: Denies chest pain, Denies edema, Denies palpitations and Denies dyspnea Respiratory: Respiratory: Denies cough and Denies dyspnea Gastrointestinal: Gastrointestinal: Denies abdominal pain, Denies diarrhea, Denies nausea and Denies vomiting Genitourinary: Genitourinary: Denies hematuria, Reports nocturia, Reports dysuria, Denies flank pain and Reports urinary urgency Musculoskeletal: Musculoskeletal: Denies back pain and Denies numbness Integumentary/Breasts: Skin/Breast: Denies pruritus and Denies rash Neurologic: Denies headache(s), Denies numbness and Denies weakness Psychiatric: Psychiatric: Reports no additional psychiatric complaints Endocrine: Endocrine: Denies palpitations PMFSH Past Medical History Medical History Chronic anticoagulation Xarelto Anxiety Diabetes History of uterine cancer Hyperlipidemia Hypertension A-fib Surgical History Surgical History History of eye surgery History of coronary artery stent placement History of cardiac catheterization H/O: hysterectomy Family History Family History Father , At age 71 circulation problems Peripheral vascular disease Mother , At age 67 of [place] Acute myocardial infarction Social History Social History Smoking status: Never smoker Tobacco type: cigarettes Second hand tobacco smoke exposure: No Alcohol intake: former Substance use: never Living arrangements: with family 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 There is no relevant family history pertinent to the presenting complaint. Exam Const: General: cooperative, healthy appearing, comfortable, no acute distress and well nourished Nutritional Appearance: well nourished Orientation/consciousness: patient oriented x3 HENMT: Head: normocephalic and atraumatic Ears: external ears normal Face/Nose/Sinus: Normal external nose present, Normal nares present and normal facial exam Face and sinus: normal facial exam Eyes: General: appearance normal, both eyes and all related structures Pupils: Equal, round and reactive pupils present EOM: EOMs intact bilaterally Neck: Neck: normal visual inspection, full ROM and supple Chest: Chest palpation & inspection: normal inspection of the chest Resp: Effort & Inspection: normal respiratory effort and able to speak in complete sentences Cardio: Rate: regular rate Rhythm: regular rhythm GI: Inspection: normal to inspection GI Palp: No abdominal tenderness and Yes Soft to palpation : General: Yes no CVA tenderness Back/Spine/Pelvis: Back: no CVA tenderness Skin: General skin exam: normal color and no rashes or lesions noted Neuro: General: patient oriented x3 and moves all extremities Cranial nerve s: Yes Equal, round and reactive pupils present Extrem: General: normal to inspection and full ROM Psych: Appearance: grossly normal and well kempt Course Course Emergency Course: Patient is aware of diagnosis, understands and agrees to treatment plan. Anticipatory guidance given. Patient agrees to follow-up as directed and is aware of reasons to seek care at the emergency department. Portions of this record may have been created with voice recognition software Level of Care: Express Care Visit MDM MDM Narrative Medical decision making narrative: Patient took AZO so no POC can be performed. Will send for culture and patient will be treated with antibiotics. Pt well hydrated appearing, in no respiratory distress, hemodynamically stable. Recommend supportive care. The patient is stable at time of discharge the clinical impression was discussed and the patient was given the opportunity to ask questions, which were addressed as completely as possible given the information available at present. Anticipatory guidance and return to care precautions were discussed and the importance of primary care follow-up was stressed and encouraged. The patient voiced understanding of the plan, indications to return, and the need for follow-up. Exam findings show no acute concerns or changes Patient is appropriate for outpatient treatment and follow-up. Differential Diagnosis Differential Diagnosis: Differential diagnostic considerations for female urogenital? issues include urinary tract infection, bacterial vaginosis, cervicitis, ovarian cyst, vaginitis, STI exposure, ovarian torsion, ectopic , cyst of Bartholin?s gland, cystitis, dysmenorrhea.?? Medical Records I have reviewed the following patient records and this information was taken into consideration when formulating the assessment and plan.: previous clinic visits Discharge Plan Discharge Clinical Impression: Urinary tract infection Qualifiers: Urinary tract infection type: acute cystitis Hematuria presence: with hematuria Qualified Code(s): N30.01 - Acute cystitis with hematuria Patient Disposition: Home Condition: Stable Instructions: Urinary Tract Infection in Women (ED) Additional Instructions: We will send a urine culture to the lab, based on your symptoms we will start treatment today. If culture comes back and bacteria is not susceptible to antibiotic, your prescription may change. Your symptoms should improve within a day of starting antibiotics, but you should finish all the antibiotic pills you get. Otherwise your infection might come back Continue with increased water intake. Take Tylenol or ibuprofen as needed for pain or fever. Follow-up with primary care provider for urine recheck or see ER visit if condition worsens with high fever, nausea, vomiting, severe back pain Your blood pressure was elevated above 120/80 today at Urgent Care. This puts you above the threshold for follow up visit with a primary care provider. High blood pressure does not usually cause any symptoms, however it may lead to kidney failure, stroke, heart disease just to name a few if untreated . Many people are anxious when seeing a provider or nurse. As a result, you are not diagnosed with hypertension at this time unless your blood pressure is persistently high at two office visits at least one week apart. Some things jim t can help lower blood pressure are lifestyle modifications, such as light exercise, decreased salt in diet, and weight loss. It is important to follow up with a PCP about this within 1 week. Patient Language: Naur[place] Prescriptions: New cephalexin 500 mg capsule 500 mg PO Q12H 5 Days Qty: 10 0RF No Action metoprolol succinate 200 mg tablet extended release 24 hr 200 mg PO DAILY coenzyme Q10 [Co Q-10] 10 mg Capsule 10 mg PO DAILY niacin 50 mg Tablet 50 mg PO DAILY cranberry fruit 400 mg Capsule 400 mg PO DAILY losartan-hydrochlorothiazide 100-12.5 mg Tablet 1 tablet PO DAILY Xarelto 20 mg Tablet 20 mg PO DAILY Adults Multivitamin 1 tab-cap PO DAILY potassium chloride [Klor-Con M20] 20 mEq tablet,ER particles/crystals 20 meq PO DAILY metformin 500 mg tablet extended release 24 hr 1,000 mg PO BID furosemide 40 mg tablet 40 mg PO DAILY simvastatin 40 mg tablet acetaminophen 500 mg capsule 1,000 mg PO Q6H PRN (Reason: pain) Qty: 30 0RF Follow-up/Referrals: John,Abhi Coelho MD [Primary Care Provider, Unknown] Time of Disposition: 12:12
[2025-01-21 11:44] VITALS: BP 166/78; PULSE 95; RESP 16; TEMP 37.1; O2SAT 99
== END 2025-01-21 12:15 | disposition home or self-care (01) ==
PROVIDERS: Emergency Provider Nurse Practitioner Family; PCP Family Medicine
DX: N30.01 Acute cystitis with hematuria (principal); E11.9 Type 2 diabetes mellitus without complications; Z79.84 Long term (current) use of oral hypoglycemic drugs; I10 Essential (primary) hypertension; I48.91 Unspecified atrial fibrillation; E78.5 Hyperlipidemia, unspecified; F41.9 Anxiety disorder, unspecified; Z79.01 Long term (current) use of anticoagulants; Z95.5 Presence of coronary angioplasty implant and graft; Z85.42 Personal history of malignant neoplasm of other parts of uterus
CPT/HCPCS: 87086; 99213; G0463